=== PATIENT | female | born 1970 | race Caucasian/White ===

== ENCOUNTER 2017-12-30 19:07 | Emergency (ER) | payer MEDICAID ==
[~2017-12-30] VITALS: Ht 162.6 cm; Wt 101.5 kg
[~2017-12-30 19:07] MED LIST: ALB0.5UD IH; ALBU6.7H INH; BUDE10.2 INH; DOXY-224 PO; EPIN0.3P3 INJ; GUAI120015 PO; HYDR-569 PO; IPRA3AMP IH; MONT10TA21 PO; OMEP-84 PO; ONDA8TAB9 PO
[2017-12-30 19:21] VITALS: BP 131/73
[2017-12-30] MEDS ORDERED: PRED50TA PO (21:39)
[2017-12-30] MEDS ORDERED: LEVO750T21 PO (21:39)
== END 2017-12-30 21:42 | disposition home or self-care (01) ==
LOC: ER 19:07
DX: J44.1 Chronic obstructive pulmonary disease with (acute) exacerbation (principal); G89.29 Other chronic pain; Z98.51 Tubal ligation status; Z88.5 Allergy status to narcotic agent; Z88.0 Allergy status to penicillin; Z88.2 Allergy status to sulfonamides; Z88.8 Allergy status to other drugs, medicaments and biological substances; Z91.040 Latex allergy status; Z79.899 Other long term (current) drug therapy
CPT/HCPCS: 71046; 99284

== ENCOUNTER 2018-02-03 17:06 | Emergency (ER) | payer MEDICAID ==
[~2018-02-03] VITALS: Ht 170.2 cm; Wt 95.5 kg
[~2018-02-03 17:06] MED LIST changes: +PRED50TA PO
[2018-02-03 17:16] VITALS: BP 127/92
[2018-02-03 18:25] LABS: URINE AMPHETAMINE SCREEN NEGATIVE (Neg); URINE BARBITUATE SCREEN NEGATIVE (Neg); URINE BENZODIAZEPINES SCREEN NEGATIVE (Neg); URINE CANNABINOID SCREEN NEGATIVE (Neg); URINE COCAINE SCREEN NEGATIVE (Neg); URINE METHADONE SCREEN NEGATIVE (Neg); URINE OPIATE SCREEN NEGATIVE (Neg); URINE PHENCYCLIDINE SCREEN NEGATIVE (Neg)
== END 2018-02-03 18:08 ==
LOC: ER 17:07
DX: Z02.89 Encounter for other administrative examinations (principal); F10.129 Alcohol abuse with intoxication, unspecified; J44.9 Chronic obstructive pulmonary disease, unspecified; G89.29 Other chronic pain; Z90.710 Acquired absence of both cervix and uterus; Z98.51 Tubal ligation status; Z98.890 Other specified postprocedural states; Z88.1 Allergy status to other antibiotic agents; Z88.3 Allergy status to other anti-infective agents; Z88.5 Allergy status to narcotic agent; Z91.040 Latex allergy status; Z88.0 Allergy status to penicillin; Z88.8 Allergy status to other drugs, medicaments and biological substances; Y90.9 Presence of alcohol in blood, level not specified
CPT/HCPCS: 80305; 99283

== ENCOUNTER 2018-02-13 14:58 | Emergency (ER) | payer MEDICAID ==
[~2018-02-13] VITALS: Ht 167.6 cm; Wt 99.3 kg
[2018-02-13 15:07] VITALS: BP 129/77
== END 2018-02-13 16:51 | disposition home or self-care (01) ==
LOC: ER 14:59
DX: J02.9 Acute pharyngitis, unspecified (principal); J44.9 Chronic obstructive pulmonary disease, unspecified; G89.29 Other chronic pain; F41.0 Panic disorder [episodic paroxysmal anxiety]; Z90.710 Acquired absence of both cervix and uterus; Z98.51 Tubal ligation status; Z88.0 Allergy status to penicillin; Z88.1 Allergy status to other antibiotic agents; Z88.2 Allergy status to sulfonamides; Z88.8 Allergy status to other drugs, medicaments and biological substances; Z91.040 Latex allergy status; Z91.012 Allergy to eggs; Z91.041 Radiographic dye allergy status; Z91.030 Bee allergy status
CPT/HCPCS: 87081; 87880; 99284

== ENCOUNTER 2018-02-18 17:52 | Emergency (ER) | payer MEDICAID ==
[~2018-02-18] VITALS: Ht 162.6 cm; Wt 97.7 kg
[2018-02-18 18:07] VITALS: BP 132/82
[2018-02-18] MEDS ORDERED: NYST1000 PO (21:09)
== END 2018-02-18 21:24 | disposition home or self-care (01) ==
LOC: ER 17:53
DX: B37.9 Candidiasis, unspecified (principal); J02.9 Acute pharyngitis, unspecified; J44.9 Chronic obstructive pulmonary disease, unspecified; G89.29 Other chronic pain; Z98.51 Tubal ligation status; Z90.710 Acquired absence of both cervix and uterus; Z98.890 Other specified postprocedural states; Z88.1 Allergy status to other antibiotic agents; Z88.5 Allergy status to narcotic agent; Z88.2 Allergy status to sulfonamides; Z91.040 Latex allergy status; Z79.899 Other long term (current) drug therapy
CPT/HCPCS: 99283

== ENCOUNTER 2018-03-20 14:05 | Emergency (ER) | payer MEDICAID ==
[~2018-03-20] VITALS: Ht 584.7 cm; Wt 90.9 kg
[2018-03-20 14:41] LABS: BASOPHILS % (AUTO) 0.3 % (0-1); EOSINOPHILS # (AUTO) 0.2 X10'3 (0-0.9); EOSINOPHILS % (AUTO) 2.5 % (0-6); HEMATOCRIT 42.6 % (35.0-45.0); HEMOGLOBIN 14.6 g/dl (12.0-16.0); LYMPHOCYTES # (AUTO) 2.2 X10'3 (1.1-4.8); LYMPHOCYTES % (AUTO) 24.3 % (21-51); MEAN CORPUSCULAR HGB CONC 34.2 % (33.0-36.5); MEAN CORPUSCULAR VOLUME 90.6 FL (78-98); MEAN PLATELET VOLUME 8.3 FL (7.4-10.4); MONOCYTES # (AUTO) 0.5 X10'3 (0-0.9); MONOCYTES % (AUTO) 5.8 % (2-12); NEUTROPHILS % (AUTO) 67.1 % (42-75); PLATELET COUNT 213 X10'3 (140-440); RED CELL DISTRIBUTION WIDTH 14.6 % (11.5-14.5); WHITE BLOOD COUNT 8.9 X10'3 (4.5-11.0)
[2018-03-20 14:51] LABS: PARTIAL THROMBOPLASTIN TIME 26 SECONDS (22-32)
[2018-03-20 14:57] LABS: ALANINE AMINOTRANSFERASE 27 U/L (12-78); ALBUMIN 3.5 G/DL (3.4-5.0); ALBUMIN/GLOBULIN RATIO 0.9 (1.1-1.5); ALKALINE PHOSPHATASE 98 IU/L (46-116); ANION GAP 13 (8-16); ASPARTATE AMINO TRANSFERASE 15 U/L (10-37); BILIRUBIN,TOTAL 0.4 MG/DL (0.1-1.0); BLOOD UREA NITROGEN 18 MG/DL (7-18); CALCIUM 8.8 MG/DL (8.5-10.1); CHLORIDE 103 MMOL/L (99-107); GLUCOSE 115 MG/DL (70-104); POTASSIUM 3.5 MMOL/L (3.5-5.1); SODIUM 137 MMOL/L (135-145); TOTAL CARBON DIOXIDE 21.4 MMOL/L (24-32); TOTAL PROTEIN 7.5 G/DL (6.4-8.2); eGFR 49 ML/MIN
[2018-03-20 16:41] VITALS: BP 126/57
== END 2018-03-20 16:42 | disposition home or self-care (01) ==
LOC: ER 14:05
DX: F41.0 Panic disorder [episodic paroxysmal anxiety] (principal); R07.89 Other chest pain; J44.9 Chronic obstructive pulmonary disease, unspecified; G89.29 Other chronic pain; F17.200 Nicotine dependence, unspecified, uncomplicated; Z86.14 Personal history of Methicillin resistant Staphylococcus aureus infection; Z90.710 Acquired absence of both cervix and uterus; Z98.890 Other specified postprocedural states; Z88.1 Allergy status to other antibiotic agents; Z88.0 Allergy status to penicillin; Z88.5 Allergy status to narcotic agent; Z88.8 Allergy status to other drugs, medicaments and biological substances; Z91.030 Bee allergy status; Z91.040 Latex allergy status; Z79.899 Other long term (current) drug therapy
CPT/HCPCS: 36415; 71045; 80053; 84484; 85025; 85610; 85730; 93005; 99285

== ENCOUNTER 2018-04-02 06:41 | Emergency (ER) | payer MEDICAID ==
[~2018-04-02] VITALS: Ht 167.6 cm; Wt 97.0 kg
[2018-04-02] MEDS ORDERED: methylPREDNISolone sod succ 125mg/2ml vial IM ONE (07:00)
[2018-04-02] MEDS ORDERED: ipratropium/albuterol 3ml nebule NEB ONE (07:00)
[2018-04-02 07:20] VITALS: BP 119/69
[2018-04-02] MEDS ORDERED: PRED20TA PO ×2 (07:35→07:38)
[2018-04-02] MEDS ORDERED: AZIT-63 PO (07:35)
[2018-04-02] MEDS ORDERED: LEVO750T21 PO (07:38)
== END 2018-04-02 07:40 | disposition home or self-care (01) ==
LOC: ER 06:41
DX: J45.901 Unspecified asthma with (acute) exacerbation (principal); F17.200 Nicotine dependence, unspecified, uncomplicated; Z90.710 Acquired absence of both cervix and uterus; J44.9 Chronic obstructive pulmonary disease, unspecified; G89.29 Other chronic pain; Z86.14 Personal history of Methicillin resistant Staphylococcus aureus infection; Z88.1 Allergy status to other antibiotic agents; Z88.5 Allergy status to narcotic agent; Z91.040 Latex allergy status; Z88.2 Allergy status to sulfonamides; Z88.8 Allergy status to other drugs, medicaments and biological substances; Z91.030 Bee allergy status; Z79.899 Other long term (current) drug therapy
CPT/HCPCS: 93005; 94640; 94760; 96372; 99283; J2930

== ENCOUNTER 2018-06-09 09:34 | Emergency (ER) | payer MEDICAID ==
[~2018-06-09] VITALS: Ht 167.6 cm; Wt 93.2 kg
[~2018-06-09 09:34] MED LIST changes: +HYDR-4383 PO; -HYDR-569 PO; -IPRA3AMP IH; +IPRA3AMP31 IH
[2018-06-09 09:47] VITALS: BP 124/76
[2018-06-09] MEDS ORDERED: ketorolac tromethamine 15mg/ml inj. IM ONE (10:10)
[2018-06-09] MEDS ORDERED: gabapentin 300mg capsule PO ONE (10:10)
[2018-06-09] MEDS ORDERED: orphenadrine citrate 60mg/2ml inj. IM ONE (10:10)
== END 2018-06-09 10:48 | disposition home or self-care (01) ==
LOC: ER 09:35
DX: M54.6 Pain in thoracic spine (principal); J44.9 Chronic obstructive pulmonary disease, unspecified; G89.29 Other chronic pain; Z90.710 Acquired absence of both cervix and uterus; Z88.1 Allergy status to other antibiotic agents; Z88.5 Allergy status to narcotic agent; Z88.2 Allergy status to sulfonamides; Z91.040 Latex allergy status; Z91.012 Allergy to eggs; Z91.030 Bee allergy status; Z91.018 Allergy to other foods; Z88.8 Allergy status to other drugs, medicaments and biological substances; Z79.899 Other long term (current) drug therapy
CPT/HCPCS: 96372; 99284; J1885; J2360

== ENCOUNTER 2018-08-06 16:06 | Emergency (ER) | payer MEDICAID ==
[~2018-08-06] VITALS: Ht 167.6 cm; Wt 90.9 kg
[~2018-08-06 16:06] MED LIST changes: +LEVO500T2 PO; +PRED20TA PO
[2018-08-06] MEDS ORDERED: metoclopramide 5 mg/ml inj IV ONE (17:00)
[2018-08-06] MEDS ORDERED: normal saline 1000ML IV soln IVB ONE (17:00)
[2018-08-06] MEDS ORDERED: ketorolac trometh. 30mg/ml inj. IV ONE (17:00)
[2018-08-06] MEDS ORDERED: diphenhydrAMINE 50 mg/ml inj IV ONE (17:00)
[2018-08-06] MEDS ORDERED: ketorolac trometh inj. 60 MG/2 ML VIAL IM ONE (18:10)
[2018-08-06] MEDS ORDERED: diphenhydrAMINE 50 mg/ml inj IM ONE (18:10)
[2018-08-06] MEDS ORDERED: metoclopramide 5 mg/ml inj IM ONE (18:10)
[2018-08-06] MEDS ORDERED: BUTA-281 PO (19:11)
[2018-08-06 19:30] VITALS: BP 108/61
== END 2018-08-06 19:32 | disposition home or self-care (01) ==
LOC: ER 16:06
DX: R51 Headache (principal); R12 Heartburn; R11.10 Vomiting, unspecified; J44.9 Chronic obstructive pulmonary disease, unspecified; G89.29 Other chronic pain; F17.200 Nicotine dependence, unspecified, uncomplicated; Z86.14 Personal history of Methicillin resistant Staphylococcus aureus infection; Z90.710 Acquired absence of both cervix and uterus; Z98.51 Tubal ligation status; Z98.890 Other specified postprocedural states; Z88.1 Allergy status to other antibiotic agents; Z88.5 Allergy status to narcotic agent; Z88.2 Allergy status to sulfonamides; Z91.040 Latex allergy status; Z91.030 Bee allergy status; Z88.0 Allergy status to penicillin; Z88.8 Allergy status to other drugs, medicaments and biological substances; Z79.899 Other long term (current) drug therapy
CPT/HCPCS: 70450; 96372; 99284; J1200; J1885; J2765

== ENCOUNTER 2018-08-21 15:39 | Emergency (ER) | payer MEDICAID ==
[~2018-08-21] VITALS: Ht 167.6 cm; Wt 90.9 kg
[~2018-08-21 15:39] MED LIST changes: +BUTA-281 PO; -LEVO500T2 PO; -PRED20TA PO
[2018-08-21 17:03] LABS: BASOPHILS % (AUTO) 0.3 % (0-1); EOSINOPHILS # (AUTO) 0.2 X10'3 (0-0.9); EOSINOPHILS % (AUTO) 1.5 % (0-6); HEMATOCRIT 44.3 % (35.0-45.0); HEMOGLOBIN 14.8 g/dl (12.0-16.0); LYMPHOCYTES # (AUTO) 2.1 X10'3 (1.1-4.8); LYMPHOCYTES % (AUTO) 19.1 % (21-51); MEAN CORPUSCULAR HEMOGLOBIN 31.4 PG (27.0-31.0); MEAN CORPUSCULAR HGB CONC 33.4 % (33.0-36.5); MEAN CORPUSCULAR VOLUME 93.9 FL (78-98); MEAN PLATELET VOLUME 8.6 FL (7.4-10.4); MONOCYTES # (AUTO) 0.5 X10'3 (0-0.9); MONOCYTES % (AUTO) 4.4 % (2-12); NEUTROPHILS # (AUTO) 8.3 X10'3 (1.8-7.7); NEUTROPHILS % (AUTO) 74.7 % (42-75); PLATELET COUNT 255 X10'3 (140-440); RED BLOOD COUNT 4.71 X10'6 (4.20-5.60); WHITE BLOOD COUNT 11.1 X10'3 (4.5-11.0)
[2018-08-21 17:19] LABS: ALANINE AMINOTRANSFERASE 25 U/L (12-78); ALBUMIN 3.4 G/DL (3.4-5.0); ALBUMIN/GLOBULIN RATIO 0.9 (1.1-1.5); ALKALINE PHOSPHATASE 96 IU/L (46-116); ANION GAP 8 (8-16); ASPARTATE AMINO TRANSFERASE 13 U/L (10-37); BILIRUBIN,TOTAL 0.3 MG/DL (0.1-1.0); BLOOD UREA NITROGEN 19 MG/DL (7-18); CALCIUM 9.1 MG/DL (8.5-10.1); CHLORIDE 105 MMOL/L (99-107); CREATININE 1.27 MG/DL (0.40-0.90); GLUCOSE 101 MG/DL (70-104); POTASSIUM 3.6 MMOL/L (3.5-5.1); SODIUM 141 MMOL/L (135-145); TOTAL CARBON DIOXIDE 28.5 MMOL/L (24-32); TOTAL PROTEIN 7.2 G/DL (6.4-8.2); eGFR 45 ML/MIN
[2018-08-21 17:24] LABS: PARTIAL THROMBOPLASTIN TIME 28 SECONDS (22-32); PROTHROMBIN TIME 9.8 SECONDS (9.0-12.0)
[2018-08-21 20:08] VITALS: BP 132/81
== END 2018-08-21 20:12 | disposition home or self-care (01) ==
LOC: ER 15:39
DX: J06.9 Acute upper respiratory infection, unspecified (principal); M94.0 Chondrocostal junction syndrome [Tietze]; J44.9 Chronic obstructive pulmonary disease, unspecified; G89.29 Other chronic pain; F17.200 Nicotine dependence, unspecified, uncomplicated; Z98.890 Other specified postprocedural states; Z98.51 Tubal ligation status; Z88.1 Allergy status to other antibiotic agents; Z88.3 Allergy status to other anti-infective agents; Z91.040 Latex allergy status; Z88.0 Allergy status to penicillin; Z88.2 Allergy status to sulfonamides; Z88.8 Allergy status to other drugs, medicaments and biological substances; Z79.899 Other long term (current) drug therapy
CPT/HCPCS: 36415; 71045; 80053; 84484; 85025; 85610; 85730; 93005; 99284

== ENCOUNTER 2018-08-28 06:16 | Emergency (ER) | payer MEDICAID ==
[~2018-08-28] VITALS: Ht 167.6 cm; Wt 94.8 kg
[2018-08-28] MEDS ORDERED: albuterol 2.5 MG/3 ML nebule NEB ONE (06:55)
[2018-08-28] MEDS ORDERED: ipratropium/albuterol 3ml nebule NEB ONE (06:55)
[2018-08-28] MEDS ORDERED: predniSONE 20 mg tablet PO ONE (06:55)
[2018-08-28] MEDS ORDERED: PRED20TA PO (08:12)
[2018-08-28] MEDS ORDERED: ALBU18HF2 INH (08:12)
[2018-08-28] MEDS ORDERED: LEVO750T21 PO (08:12)
[2018-08-28 08:20] VITALS: BP 110/60
== END 2018-08-28 08:46 | disposition home or self-care (01) ==
LOC: ER 06:17
DX: J44.1 Chronic obstructive pulmonary disease with (acute) exacerbation (principal); J20.9 Acute bronchitis, unspecified; G89.29 Other chronic pain; F17.200 Nicotine dependence, unspecified, uncomplicated; Z90.710 Acquired absence of both cervix and uterus; Z98.51 Tubal ligation status; Z87.01 Personal history of pneumonia (recurrent); Z88.1 Allergy status to other antibiotic agents; Z88.3 Allergy status to other anti-infective agents; Z91.013 Allergy to seafood; Z88.5 Allergy status to narcotic agent; Z91.040 Latex allergy status; Z88.0 Allergy status to penicillin; Z88.2 Allergy status to sulfonamides; Z79.899 Other long term (current) drug therapy
CPT/HCPCS: 71045; 94640; 94760; 99284; J7512

== ENCOUNTER 2018-09-24 14:14 | Emergency (ER) | payer MEDICAID ==
[~2018-09-24] VITALS: Ht 167.6 cm; Wt 94.0 kg
[~2018-09-24 14:14] MED LIST changes: +ALBU18HF2 INH
[2018-09-24 14:16] VITALS: BP 115/68
[2018-09-24 14:46] LABS: BASOPHILS # (AUTO) 0.1 X10'3 (0-0.2); BASOPHILS % (AUTO) 0.7 % (0-1); EOSINOPHILS # (AUTO) 0.8 X10'3 (0-0.9); HEMATOCRIT 43.4 % (35.0-45.0); HEMOGLOBIN 14.8 g/dl (12.0-16.0); LYMPHOCYTES # (AUTO) 2.4 X10'3 (1.1-4.8); LYMPHOCYTES % (AUTO) 21.5 % (21-51); MEAN CORPUSCULAR HEMOGLOBIN 31.9 PG (27.0-31.0); MEAN CORPUSCULAR HGB CONC 34.2 % (33.0-36.5); MEAN CORPUSCULAR VOLUME 93.3 FL (78-98); MEAN PLATELET VOLUME 8.6 FL (7.4-10.4); MONOCYTES # (AUTO) 0.6 X10'3 (0-0.9); MONOCYTES % (AUTO) 5.8 % (2-12); NEUTROPHILS # (AUTO) 7.1 X10'3 (1.8-7.7); PLATELET COUNT 232 X10'3 (140-440); RED BLOOD COUNT 4.65 X10'6 (4.20-5.60); RED CELL DISTRIBUTION WIDTH 13.9 % (11.5-14.5)
[2018-09-24 15:02] LABS: ALANINE AMINOTRANSFERASE 24 U/L (12-78); ALBUMIN 3.5 G/DL (3.4-5.0); ALBUMIN/GLOBULIN RATIO 0.9 (1.1-1.5); ALKALINE PHOSPHATASE 106 IU/L (46-116); ANION GAP 13 (8-16); ASPARTATE AMINO TRANSFERASE 13 U/L (10-37); BILIRUBIN,TOTAL 0.2 MG/DL (0.1-1.0); BLOOD UREA NITROGEN 18 MG/DL (7-18); BUN/CREATININE RATIO 12.6 (6.6-38.0); CALCIUM 8.9 MG/DL (8.5-10.1); CHLORIDE 105 MMOL/L (99-107); CREATININE 1.43 MG/DL (0.40-0.90); GLUCOSE 132 MG/DL (70-104); POTASSIUM 3.7 MMOL/L (3.5-5.1); SODIUM 140 MMOL/L (135-145); TOTAL CARBON DIOXIDE 21.6 MMOL/L (24-32); TOTAL PROTEIN 7.6 G/DL (6.4-8.2); eGFR 40 ML/MIN
[2018-09-24 15:04] LABS: PARTIAL THROMBOPLASTIN TIME 28 SECONDS (22-32); PROTHROMBIN TIME 9.8 SECONDS (9.0-12.0)
[2018-09-24] MEDS ORDERED: BENZ-16 PO (15:39)
--- NOTE | 2018-09-24 15:47 | NUR ---
Pt sat in lobby while tests were done. Pt was brought back to room to see MD and was discharged moments later. Pt assessed by Provider. Pt discharged prior to sound designer. See MSE by Dr Romeo.
== END 2018-09-24 15:49 | disposition home or self-care (01) ==
LOC: ER 14:14
DX: J06.9 Acute upper respiratory infection, unspecified (principal); J44.9 Chronic obstructive pulmonary disease, unspecified; G89.29 Other chronic pain; Z87.891 Personal history of nicotine dependence; Z90.710 Acquired absence of both cervix and uterus; Z98.51 Tubal ligation status; Z98.890 Other specified postprocedural states; Z88.1 Allergy status to other antibiotic agents; Z88.3 Allergy status to other anti-infective agents; Z91.040 Latex allergy status; Z88.0 Allergy status to penicillin; Z79.899 Other long term (current) drug therapy
CPT/HCPCS: 36415; 71045; 80053; 84484; 85025; 85610; 85730; 93005; 99284

== ENCOUNTER 2018-11-14 15:58 | Emergency (ER) | payer MEDICAID ==
[~2018-11-14] VITALS: Ht 165.1 cm; Wt 99.0 kg
[2018-11-14 16:30] VITALS: BP 138/63
[2018-11-14] MEDS ORDERED: PRED10TA23 PO (16:38)
[2018-11-14] MEDS ORDERED: DIPH25CA83 PO (16:38)
[2018-11-14] MEDS ORDERED: FAMO-128 PO (16:38)
== END 2018-11-14 16:58 | disposition home or self-care (01) ==
LOC: ER 15:58
DX: L23.9 Allergic contact dermatitis, unspecified cause (principal); R30.0 Dysuria; J43.9 Emphysema, unspecified; G89.29 Other chronic pain; Z90.710 Acquired absence of both cervix and uterus; Z98.51 Tubal ligation status; Z88.1 Allergy status to other antibiotic agents; Z88.5 Allergy status to narcotic agent; Z91.040 Latex allergy status; Z88.0 Allergy status to penicillin; Z88.2 Allergy status to sulfonamides; Z91.030 Bee allergy status; Z91.02 Food additives allergy status; Z88.8 Allergy status to other drugs, medicaments and biological substances; Z79.899 Other long term (current) drug therapy
CPT/HCPCS: 99283

== ENCOUNTER 2018-11-19 07:43 | Emergency (ER) | payer MEDICAID ==
[~2018-11-19] VITALS: Ht 165.1 cm; Wt 99.1 kg
[~2018-11-19 07:43] MED LIST changes: +DIPH25CA83 PO; +FAMO-128 PO; +PRED10TA23 PO
[2018-11-19 07:45] VITALS: BP 126/57
--- NOTE | 2018-11-19 08:47 | NUR ---
provider in the room doing exam. pt. has large itchy red areas all over her abdomen on the left side. pt. has rash in her nate area also... poison oak.
[2018-11-19] MEDS ORDERED: triamcinolone acetonide 40mg/ml inj IM ONE (09:05)
== END 2018-11-19 09:42 | disposition home or self-care (01) ==
LOC: ER 07:44
DX: L25.8 Unspecified contact dermatitis due to other agents (principal); J44.9 Chronic obstructive pulmonary disease, unspecified; G89.29 Other chronic pain; Z86.14 Personal history of Methicillin resistant Staphylococcus aureus infection; Z90.710 Acquired absence of both cervix and uterus; Z98.51 Tubal ligation status; Z87.891 Personal history of nicotine dependence; Z79.899 Other long term (current) drug therapy; Z88.1 Allergy status to other antibiotic agents; Z88.3 Allergy status to other anti-infective agents; Z88.6 Allergy status to analgesic agent; Z88.0 Allergy status to penicillin; Z91.040 Latex allergy status; Z88.2 Allergy status to sulfonamides
CPT/HCPCS: 96372; 99283; J3301

== ENCOUNTER 2018-12-26 14:43 | Emergency (ER) | payer MEDICAID ==
[~2018-12-26] VITALS: Ht 167.6 cm; Wt 85.0 kg
[~2018-12-26 14:43] MED LIST changes: -PRED10TA23 PO
[2018-12-26 15:07] VITALS: BP 122/53
[2018-12-26] MEDS ORDERED: albuterol 2.5 MG/3 ML nebule NEB ONE (15:15)
[2018-12-26] MEDS ORDERED: PRED20TA PO (16:08)
== END 2018-12-26 16:18 | disposition home or self-care (01) ==
LOC: ER 14:45
DX: J45.901 Unspecified asthma with (acute) exacerbation (principal); G89.29 Other chronic pain; Z88.1 Allergy status to other antibiotic agents; Z88.2 Allergy status to sulfonamides; Z91.040 Latex allergy status; Z79.899 Other long term (current) drug therapy; Z86.14 Personal history of Methicillin resistant Staphylococcus aureus infection; Z90.710 Acquired absence of both cervix and uterus; Z98.51 Tubal ligation status; Z98.890 Other specified postprocedural states
CPT/HCPCS: 94640; 94760; 99283

== ENCOUNTER → 2018-12-30 | Emergency (ER) | payer MEDICAID ==
[~2018-12-30] VITALS: Ht 167.6 cm; Wt 85.0 kg
[~2018-12-30] MED LIST changes: +PRED20TA PO; +aspirin 81mg tab.chew PO ONE; +normal saline 1000ml 1,000 ML IV ONE
[2018-12-30 10:29] LABS: BASOPHILS % (AUTO) 0.2 % (0-1); EOSINOPHILS % (AUTO) 0.1 % (0-6); HEMATOCRIT 45.6 % (35.0-45.0); LYMPHOCYTES % (AUTO) 7.1 % (21-51); MEAN CORPUSCULAR HEMOGLOBIN 30.8 PG (27.0-31.0); MEAN CORPUSCULAR VOLUME 93.5 FL (78-98); MEAN PLATELET VOLUME 8.6 FL (7.4-10.4); MONOCYTES # (AUTO) 0.5 X10'3 (0-0.9); MONOCYTES % (AUTO) 3.4 % (2-12); NEUTROPHILS # (AUTO) 12.9 X10'3 (1.8-7.7); NEUTROPHILS % (AUTO) 89.2 % (42-75); PLATELET COUNT 255 X10'3 (140-440); RED BLOOD COUNT 4.87 X10'6 (4.20-5.60); RED CELL DISTRIBUTION WIDTH 13.4 % (11.5-14.5); WHITE BLOOD COUNT 14.5 X10'3 (4.5-11.0)
[2018-12-30 10:36] VITALS: BP 128/73
[2018-12-30 10:43] LABS: ALANINE AMINOTRANSFERASE 30 U/L (12-78); ALBUMIN 3.4 G/DL (3.4-5.0); ALBUMIN/GLOBULIN RATIO 0.9 (1.1-1.5); ALKALINE PHOSPHATASE 86 IU/L (46-116); ANION GAP 13 (8-16); ASPARTATE AMINO TRANSFERASE 11 U/L (10-37); BILIRUBIN,TOTAL 0.2 MG/DL (0.1-1.0); BLOOD UREA NITROGEN 26 MG/DL (7-18); CALCIUM 9.7 MG/DL (8.5-10.1); CHLORIDE 106 MMOL/L (99-107); GLUCOSE 109 MG/DL (70-104); POTASSIUM 3.9 MMOL/L (3.5-5.1); SODIUM 141 MMOL/L (135-145); TOTAL CARBON DIOXIDE 22.5 MMOL/L (24-32); TOTAL PROTEIN 7.1 G/DL (6.4-8.2); eGFR 44 ML/MIN
== END | disposition home or self-care (01) ==
LOC: ER 09:24
DX: R07.89 Other chest pain (principal); J06.9 Acute upper respiratory infection, unspecified; J44.9 Chronic obstructive pulmonary disease, unspecified; G89.29 Other chronic pain; Z86.14 Personal history of Methicillin resistant Staphylococcus aureus infection; Z90.710 Acquired absence of both cervix and uterus; Z98.51 Tubal ligation status; Z98.890 Other specified postprocedural states; Z88.8 Allergy status to other drugs, medicaments and biological substances; Z88.1 Allergy status to other antibiotic agents; Z88.5 Allergy status to narcotic agent; Z88.2 Allergy status to sulfonamides; Z88.0 Allergy status to penicillin; Z91.040 Latex allergy status; Z91.030 Bee allergy status; Z91.018 Allergy to other foods; Z79.899 Other long term (current) drug therapy
CPT/HCPCS: 36415; 71045; 71250; 80053; 83735; 83880; 84484; 85025; 93005; 99284; J7030

== ENCOUNTER 2019-04-04 16:24 | Emergency (ER) | payer MEDICAID ==
[~2019-04-04] VITALS: Ht 167.6 cm; Wt 88.6 kg
[~2019-04-04 16:24] MED LIST changes: -ALBU6.7H INH; +ALBU6.7H9 INH; -PRED20TA PO; -aspirin 81mg tab.chew PO ONE; -normal saline 1000ml 1,000 ML IV ONE
[2019-04-04] MEDS ORDERED: albuterol 2.5 MG/3 ML nebule NEB ONE (17:15)
[2019-04-04 17:34] LABS: BASOPHILS # (AUTO) 0.1 X10'3 (0-0.2); BASOPHILS % (AUTO) 0.7 % (0-1); EOSINOPHILS # (AUTO) 0.2 X10'3 (0-0.9); EOSINOPHILS % (AUTO) 1.9 % (0-6); HEMATOCRIT 43.1 % (35.0-45.0); HEMOGLOBIN 14.5 g/dl (12.0-16.0); LYMPHOCYTES # (AUTO) 2.4 X10'3 (1.1-4.8); LYMPHOCYTES % (AUTO) 24.7 % (21-51); MEAN CORPUSCULAR HEMOGLOBIN 31.8 PG (27.0-31.0); MEAN CORPUSCULAR HGB CONC 33.7 g/dL (33.0-36.5); MEAN CORPUSCULAR VOLUME 94.3 FL (78-98); MEAN PLATELET VOLUME 8.1 FL (7.4-10.4); MONOCYTES # (AUTO) 0.7 X10'3 (0-0.9); MONOCYTES % (AUTO) 7.3 % (2-12); NEUTROPHILS # (AUTO) 6.5 X10'3 (1.8-7.7); NEUTROPHILS % (AUTO) 65.4 % (42-75); PLATELET COUNT 245 X10'3 (140-440); RED BLOOD COUNT 4.57 X10'6 (4.20-5.60); RED CELL DISTRIBUTION WIDTH 14.1 % (11.5-14.5); WHITE BLOOD COUNT 9.9 X10'3 (4.5-11.0)
[2019-04-04 17:46] LABS: ALANINE AMINOTRANSFERASE 25 U/L (12-78); ALBUMIN 3.4 G/DL (3.4-5.0); ALBUMIN/GLOBULIN RATIO 0.9 (1.1-1.5); ALKALINE PHOSPHATASE 90 IU/L (46-116); ANION GAP 9 (8-16); ASPARTATE AMINO TRANSFERASE 14 U/L (10-37); BILIRUBIN,TOTAL 0.2 MG/DL (0.1-1.0); BLOOD UREA NITROGEN 18 MG/DL (7-18); BUN/CREATININE RATIO 18.4 (6.6-38.0); CALCIUM 8.7 MG/DL (8.5-10.1); CHLORIDE 107 MMOL/L (99-107); CREATININE 0.98 MG/DL (0.40-0.90); GLUCOSE 100 MG/DL (70-104); POTASSIUM 3.8 MMOL/L (3.5-5.1); SODIUM 140 MMOL/L (135-145); TOTAL CARBON DIOXIDE 23.6 MMOL/L (24-32); TOTAL PROTEIN 7.1 G/DL (6.4-8.2); eGFR 61 ML/MIN
[2019-04-04 18:32] VITALS: BP 129/74
--- NOTE | 2019-04-04 18:34 | NUR ---
DR POLANCO TALKING WITH PT ABOUT DISCHARGE. PT OFFERED NAUSEA MEDS BUT REPORTS NO NEED FOR THISL. pT IS AGREEABLE TO DC. CURRENT VSS.
== END 2019-04-04 18:40 | disposition home or self-care (01) ==
LOC: ER 16:24
DX: R07.89 Other chest pain (principal); J44.9 Chronic obstructive pulmonary disease, unspecified; G89.29 Other chronic pain; Z87.891 Personal history of nicotine dependence; Z90.710 Acquired absence of both cervix and uterus; Z98.51 Tubal ligation status; Z98.890 Other specified postprocedural states; Z88.1 Allergy status to other antibiotic agents; Z88.3 Allergy status to other anti-infective agents; Z88.0 Allergy status to penicillin; Z88.2 Allergy status to sulfonamides; Z91.040 Latex allergy status; Z88.8 Allergy status to other drugs, medicaments and biological substances
CPT/HCPCS: 36415; 71046; 80053; 84484; 85025; 93005; 94640; 94760; 99284

== ENCOUNTER 2019-05-12 06:17 | Emergency (ER) | payer MEDICAID ==
[~2019-05-12] VITALS: Ht 167.6 cm; Wt 91.4 kg
[2019-05-12 06:28] VITALS: BP 139/51
[2019-05-12 07:05] LABS: BASOPHILS # (AUTO) 0.1 X10'3 (0-0.2); BASOPHILS % (AUTO) 1.1 % (0-1); EOSINOPHILS # (AUTO) 0.2 X10'3 (0-0.9); EOSINOPHILS % (AUTO) 2.7 % (0-6); HEMATOCRIT 43.6 % (35.0-45.0); HEMOGLOBIN 14.7 g/dl (12.0-16.0); LYMPHOCYTES # (AUTO) 1.7 X10'3 (1.1-4.8); LYMPHOCYTES % (AUTO) 23.7 % (21-51); MEAN CORPUSCULAR HEMOGLOBIN 31.8 PG (27.0-31.0); MEAN CORPUSCULAR HGB CONC 33.6 g/dL (33.0-36.5); MEAN CORPUSCULAR VOLUME 94.4 FL (78-98); MEAN PLATELET VOLUME 8.3 FL (7.4-10.4); MONOCYTES # (AUTO) 0.6 X10'3 (0-0.9); MONOCYTES % (AUTO) 7.9 % (2-12); NEUTROPHILS # (AUTO) 4.6 X10'3 (1.8-7.7); NEUTROPHILS % (AUTO) 64.6 % (42-75); PLATELET COUNT 238 X10'3 (140-440); RED BLOOD COUNT 4.62 X10'6 (4.20-5.60); WHITE BLOOD COUNT 7.1 X10'3 (4.5-11.0)
[2019-05-12 07:31] LABS: PARTIAL THROMBOPLASTIN TIME 27 SECONDS (22-32)
[2019-05-12 07:32] LABS: ALANINE AMINOTRANSFERASE 20 U/L (12-78); ALBUMIN/GLOBULIN RATIO 0.8 (1.1-1.5); ALKALINE PHOSPHATASE 82 IU/L (46-116); ANION GAP 9 (8-16); ASPARTATE AMINO TRANSFERASE 13 U/L (10-37); BILIRUBIN,TOTAL 0.3 MG/DL (0.1-1.0); BLOOD UREA NITROGEN 15 MG/DL (7-18); BUN/CREATININE RATIO 15.8 (6.6-38.0); CALCIUM 8.5 MG/DL (8.5-10.1); CHLORIDE 106 MMOL/L (99-107); CREATININE 0.95 MG/DL (0.40-0.90); GLUCOSE 93 MG/DL (70-104); POTASSIUM 3.8 MMOL/L (3.5-5.1); SODIUM 144 MMOL/L (135-145); TOTAL CARBON DIOXIDE 29.4 MMOL/L (24-32); TOTAL PROTEIN 6.6 G/DL (6.4-8.2); eGFR 63 ML/MIN
== END 2019-05-12 08:04 | disposition home or self-care (01) ==
LOC: ER 06:18
DX: R07.89 Other chest pain (principal); R05 Cough; J44.9 Chronic obstructive pulmonary disease, unspecified; G89.29 Other chronic pain; F41.9 Anxiety disorder, unspecified; F17.210 Nicotine dependence, cigarettes, uncomplicated; F10.99 Alcohol use, unspecified with unspecified alcohol-induced disorder; Z86.14 Personal history of Methicillin resistant Staphylococcus aureus infection; Z90.710 Acquired absence of both cervix and uterus; Z98.51 Tubal ligation status; Z98.890 Other specified postprocedural states; Z88.1 Allergy status to other antibiotic agents; Z88.5 Allergy status to narcotic agent; Z91.040 Latex allergy status; Z88.0 Allergy status to penicillin; Z91.030 Bee allergy status; Z79.899 Other long term (current) drug therapy; Y90.9 Presence of alcohol in blood, level not specified
CPT/HCPCS: 36415; 71045; 80053; 84484; 85025; 85610; 85730; 93005; 99284

== ENCOUNTER 2019-05-30 16:43 | Emergency (ER) | payer MEDICAID ==
[~2019-05-30] VITALS: Ht 167.6 cm; Wt 91.4 kg
[2019-05-30] MEDS ORDERED: ketorolac trometh. 30mg/ml inj. IV ONE (18:30)
[2019-05-30] MEDS ORDERED: orphenadrine citrate 60mg/2ml inj. IM ONE (18:30)
[2019-05-30] MEDS: morphine 4 MG/ML inj SYRINge IV ONE ×2 (18:42→18:43)
[2019-05-30] MEDS ORDERED: IBUP-1986 PO (18:55)
[2019-05-30] MEDS ORDERED: HYDR-4353 PO (18:55)
[2019-05-30] MEDS ORDERED: ORPH100T2 PO (18:55)
[2019-05-30 19:21] VITALS: BP 130/84
== END 2019-05-30 19:27 | disposition home or self-care (01) ==
LOC: ER 16:44
DX: S16.1XXA Strain of muscle, fascia and tendon at neck level, initial encounter (principal); S46.811A Strain of other muscles, fascia and tendons at shoulder and upper arm level, right arm, initial encounter; S29.011A Strain of muscle and tendon of front wall of thorax, initial encounter; J43.9 Emphysema, unspecified; G89.29 Other chronic pain; F41.0 Panic disorder [episodic paroxysmal anxiety]; F41.9 Anxiety disorder, unspecified; F15.90 Other stimulant use, unspecified, uncomplicated; Z86.14 Personal history of Methicillin resistant Staphylococcus aureus infection; Z98.51 Tubal ligation status; Z90.710 Acquired absence of both cervix and uterus; Z87.891 Personal history of nicotine dependence; Z98.890 Other specified postprocedural states; Z88.1 Allergy status to other antibiotic agents; Z91.040 Latex allergy status; Z88.5 Allergy status to narcotic agent; Z88.2 Allergy status to sulfonamides; Z79.2 Long term (current) use of antibiotics; Z79.899 Other long term (current) drug therapy; V43.63XA Car passenger injured in collision with pick-up truck in traffic accident, initial encounter; Y93.89 Activity, other specified; Y92.488 Other paved roadways as the place of occurrence of the external cause; Y99.8 Other external cause status
CPT/HCPCS: 96372; 96374; 99283; J1885; J2270; J2360

== ENCOUNTER 2019-09-07 15:05 | Emergency (ER) | payer MEDICAID, OTHER ==
[~2019-09-07] VITALS: Ht 167.6 cm; Wt 100.0 kg
[~2019-09-07 15:05] MED LIST changes: +IBUP-1986 PO; +LIDOcaine 1% W/epiNEPHrine 1:100,000 20ml vial ONE; +ORPH100T2 PO
[2019-09-07 15:20] VITALS: BP 133/72
[2019-09-07] MEDS ORDERED: DAPS100T2 PO (16:34)
== END 2019-09-07 17:03 | disposition home or self-care (01) ==
LOC: ER 15:05
DX: L02.412 Cutaneous abscess of left axilla (principal); G89.29 Other chronic pain; F41.9 Anxiety disorder, unspecified; F15.90 Other stimulant use, unspecified, uncomplicated; J44.9 Chronic obstructive pulmonary disease, unspecified; F10.99 Alcohol use, unspecified with unspecified alcohol-induced disorder; Z90.710 Acquired absence of both cervix and uterus; Z88.1 Allergy status to other antibiotic agents; Z88.0 Allergy status to penicillin; Z88.2 Allergy status to sulfonamides; Z88.8 Allergy status to other drugs, medicaments and biological substances; Z79.2 Long term (current) use of antibiotics; Z79.899 Other long term (current) drug therapy; Z86.14 Personal history of Methicillin resistant Staphylococcus aureus infection; Z98.51 Tubal ligation status; Y90.9 Presence of alcohol in blood, level not specified
CPT/HCPCS: 10060; 99283

== ENCOUNTER 2019-09-10 12:30 | Emergency (ER) | payer OTHER ==
[~2019-09-10] VITALS: Ht 170.2 cm; Wt 100.0 kg
[~2019-09-10 12:30] MED LIST changes: +DAPS100T2 PO; -LIDOcaine 1% W/epiNEPHrine 1:100,000 20ml vial ONE
[2019-09-10 13:10] VITALS: BP 123/64
== END 2019-09-10 13:46 | disposition home or self-care (01) ==
LOC: ER 12:31
DX: Z48.00 Encounter for change or removal of nonsurgical wound dressing (principal); J44.9 Chronic obstructive pulmonary disease, unspecified; G89.29 Other chronic pain; F41.9 Anxiety disorder, unspecified; F10.99 Alcohol use, unspecified with unspecified alcohol-induced disorder; Z86.14 Personal history of Methicillin resistant Staphylococcus aureus infection; Z90.710 Acquired absence of both cervix and uterus; Z98.51 Tubal ligation status; Z98.890 Other specified postprocedural states; Z88.1 Allergy status to other antibiotic agents; Z88.5 Allergy status to narcotic agent; Z88.2 Allergy status to sulfonamides; Z91.040 Latex allergy status; Z88.6 Allergy status to analgesic agent; Z91.030 Bee allergy status; Z88.8 Allergy status to other drugs, medicaments and biological substances; Z79.899 Other long term (current) drug therapy; Y90.9 Presence of alcohol in blood, level not specified
CPT/HCPCS: 99281

== ENCOUNTER 2019-09-12 11:45 | Emergency (ER) | payer OTHER ==
[~2019-09-12] VITALS: Ht 170.2 cm; Wt 98.0 kg
[2019-09-12 12:03] VITALS: BP 110/81
== END 2019-09-12 13:06 | disposition home or self-care (01) ==
LOC: ER 11:45
DX: R22.32 Localized swelling, mass and lump, left upper limb (principal); J44.9 Chronic obstructive pulmonary disease, unspecified; G89.29 Other chronic pain; Z87.01 Personal history of pneumonia (recurrent); Z86.14 Personal history of Methicillin resistant Staphylococcus aureus infection; Z90.710 Acquired absence of both cervix and uterus; Z98.51 Tubal ligation status; Z98.890 Other specified postprocedural states; Z79.899 Other long term (current) drug therapy; Z88.1 Allergy status to other antibiotic agents; Z88.3 Allergy status to other anti-infective agents; Z88.6 Allergy status to analgesic agent; Z91.040 Latex allergy status; Z91.030 Bee allergy status
CPT/HCPCS: 99281

== ENCOUNTER 2019-09-25 18:41 | Emergency (ER) | payer OTHER ==
[~2019-09-25] VITALS: Ht 167.6 cm; Wt 99.0 kg
[2019-09-25 19:33] LABS: BASOPHILS # (AUTO) 0.1 X10'3 (0-0.2); BASOPHILS % (AUTO) 1.3 % (0-1); EOSINOPHILS # (AUTO) 0.1 X10'3 (0-0.9); EOSINOPHILS % (AUTO) 1.3 % (0-6); HEMATOCRIT 45.5 % (35.0-45.0); HEMOGLOBIN 15.5 g/dl (12.0-16.0); LYMPHOCYTES # (AUTO) 2.9 X10'3 (1.1-4.8); LYMPHOCYTES % (AUTO) 26.3 % (21-51); MEAN CORPUSCULAR HEMOGLOBIN 31.1 PG (27.0-31.0); MEAN CORPUSCULAR VOLUME 91.4 FL (78-98); MEAN PLATELET VOLUME 8.4 FL (7.4-10.4); MONOCYTES # (AUTO) 0.8 X10'3 (0-0.9); MONOCYTES % (AUTO) 7.6 % (2-12); NEUTROPHILS # (AUTO) 6.9 X10'3 (1.8-7.7); NEUTROPHILS % (AUTO) 63.5 % (42-75); PLATELET COUNT 263 X10'3 (140-440); RED BLOOD COUNT 4.98 X10'6 (4.20-5.60); RED CELL DISTRIBUTION WIDTH 13.2 % (11.5-14.5); WHITE BLOOD COUNT 10.9 X10'3 (4.5-11.0)
[2019-09-25 19:40] LABS: ALANINE AMINOTRANSFERASE 28 U/L (12-78); ALBUMIN 3.7 G/DL (3.4-5.0); ALBUMIN/GLOBULIN RATIO 0.9 (1.1-1.5); ALKALINE PHOSPHATASE 113 IU/L (46-116); ANION GAP 6 (8-16); ASPARTATE AMINO TRANSFERASE 14 U/L (10-37); BILIRUBIN,TOTAL 0.3 MG/DL (0.1-1.0); BLOOD UREA NITROGEN 19 MG/DL (7-18); BUN/CREATININE RATIO 18.4 (6.6-38.0); CALCIUM 9.4 MG/DL (8.5-10.1); CHLORIDE 105 MMOL/L (99-107); CREATININE 1.03 MG/DL (0.40-0.90); GLUCOSE 107 MG/DL (70-104); POTASSIUM 3.8 MMOL/L (3.5-5.1); SODIUM 138 MMOL/L (135-145); TOTAL CARBON DIOXIDE 27.4 MMOL/L (24-32); eGFR 57 ML/MIN
[2019-09-25] MEDS ORDERED: LEVO500T2 PO (20:24)
[2019-09-25] MEDS ORDERED: ibuprofen tablet 400 MG TABLET PO ONE (20:25)
[2019-09-25 20:36] VITALS: BP 131/79
== END 2019-09-25 20:40 | disposition home or self-care (01) ==
LOC: ER 18:41
DX: R07.89 Other chest pain (principal); L02.412 Cutaneous abscess of left axilla; J44.9 Chronic obstructive pulmonary disease, unspecified; G89.29 Other chronic pain; F41.9 Anxiety disorder, unspecified; F17.210 Nicotine dependence, cigarettes, uncomplicated; F10.99 Alcohol use, unspecified with unspecified alcohol-induced disorder; Z88.1 Allergy status to other antibiotic agents; Z88.5 Allergy status to narcotic agent; Z88.0 Allergy status to penicillin; Z88.2 Allergy status to sulfonamides; Z88.6 Allergy status to analgesic agent; Z91.040 Latex allergy status; Z91.030 Bee allergy status; Z79.899 Other long term (current) drug therapy; Z90.710 Acquired absence of both cervix and uterus; Z98.51 Tubal ligation status; Z98.890 Other specified postprocedural states; Y90.9 Presence of alcohol in blood, level not specified
CPT/HCPCS: 36415; 71045; 80053; 84484; 85025; 93005; 99284

== ENCOUNTER 2019-12-19 21:31 | Emergency (ER) | payer MEDICAID ==
[~2019-12-19] VITALS: Ht 167.6 cm; Wt 100.0 kg
[2019-12-19 22:13] LABS: BASOPHILS # (AUTO) 0.1 X10'3 (0-0.2); BASOPHILS % (AUTO) 0.8 % (0-1); EOSINOPHILS # (AUTO) 0.2 X10'3 (0-0.9); EOSINOPHILS % (AUTO) 2.2 % (0-6); HEMATOCRIT 44.3 % (35.0-45.0); HEMOGLOBIN 14.7 g/dl (12.0-16.0); LYMPHOCYTES # (AUTO) 2.3 X10'3 (1.1-4.8); LYMPHOCYTES % (AUTO) 25.4 % (21-51); MEAN CORPUSCULAR HEMOGLOBIN 31.3 PG (27.0-31.0); MEAN CORPUSCULAR HGB CONC 33.3 g/dL (33.0-36.5); MEAN CORPUSCULAR VOLUME 94.2 FL (78-98); MEAN PLATELET VOLUME 8.8 FL (7.4-10.4); MONOCYTES # (AUTO) 0.9 X10'3 (0-0.9); MONOCYTES % (AUTO) 10.1 % (2-12); NEUTROPHILS # (AUTO) 5.7 X10'3 (1.8-7.7); NEUTROPHILS % (AUTO) 61.5 % (42-75); PLATELET COUNT 227 X10'3 (140-440); RED BLOOD COUNT 4.71 X10'6 (4.20-5.60); RED CELL DISTRIBUTION WIDTH 13.8 % (11.5-14.5); WHITE BLOOD COUNT 9.2 X10'3 (4.5-11.0)
[2019-12-19 22:22] LABS: D-DIMER 0.23 MG/L FEU (0-0.50)
[2019-12-19 23:16] LABS: ALANINE AMINOTRANSFERASE 26 U/L (12-78); ALBUMIN 3.5 G/DL (3.4-5.0); ALKALINE PHOSPHATASE 90 IU/L (46-116); ANION GAP 9 (8-16); ASPARTATE AMINO TRANSFERASE 14 U/L (10-37); BILIRUBIN,TOTAL 0.2 MG/DL (0.1-1.0); BLOOD UREA NITROGEN 21 MG/DL (7-18); BUN/CREATININE RATIO 21.2 (6.6-38.0); CALCIUM 9.1 MG/DL (8.5-10.1); CHLORIDE 108 MMOL/L (99-107); CREATININE 0.99 MG/DL (0.40-0.90); GLUCOSE 136 MG/DL (70-104); POTASSIUM 3.3 MMOL/L (3.5-5.1); SODIUM 140 MMOL/L (135-145); TOTAL CARBON DIOXIDE 23.1 MMOL/L (24-32); TOTAL PROTEIN 7.1 G/DL (6.4-8.2); eGFR 60 ML/MIN
[2019-12-19 23:33] VITALS: BP 119/46
== END 2019-12-19 23:54 | disposition home or self-care (01) ==
LOC: ER 21:33
DX: R07.89 Other chest pain (principal); J43.9 Emphysema, unspecified; J45.909 Unspecified asthma, uncomplicated; G89.29 Other chronic pain; F41.9 Anxiety disorder, unspecified; F41.0 Panic disorder [episodic paroxysmal anxiety]; Z98.51 Tubal ligation status; Z90.710 Acquired absence of both cervix and uterus; Z98.890 Other specified postprocedural states; Z72.89 Other problems related to lifestyle; Z86.14 Personal history of Methicillin resistant Staphylococcus aureus infection; Z88.8 Allergy status to other drugs, medicaments and biological substances; Z79.2 Long term (current) use of antibiotics; Z88.5 Allergy status to narcotic agent; Z88.0 Allergy status to penicillin; Z88.2 Allergy status to sulfonamides; Z91.041 Radiographic dye allergy status; Z79.899 Other long term (current) drug therapy
CPT/HCPCS: 36415; 71045; 80053; 84484; 85025; 85379; 93005; 99285

== ENCOUNTER 2020-03-07 11:45 | Emergency (ER) | payer MEDICAID ==
[~2020-03-07] VITALS: Ht 167.6 cm; Wt 97.3 kg
[~2020-03-07 11:45] MED LIST changes: +KEN0.1O TP
[2020-03-07] MEDS ORDERED: famotidine 20mg tablet PO ONE (12:15)
[2020-03-07] MEDS ORDERED: diphenhydrAMINE 50 mg/ml inj IM ONE (12:15)
[2020-03-07 13:32] VITALS: BP 125/77
== END 2020-03-07 13:47 | disposition home or self-care (01) ==
LOC: ER 11:46
DX: T78.40XA Allergy, unspecified, initial encounter (principal); J45.909 Unspecified asthma, uncomplicated; J43.9 Emphysema, unspecified; G89.29 Other chronic pain; F41.9 Anxiety disorder, unspecified; Z87.01 Personal history of pneumonia (recurrent); Z87.440 Personal history of urinary (tract) infections; Z86.14 Personal history of Methicillin resistant Staphylococcus aureus infection; Z90.710 Acquired absence of both cervix and uterus; Z98.51 Tubal ligation status; Z98.890 Other specified postprocedural states; Z72.89 Other problems related to lifestyle; Z88.1 Allergy status to other antibiotic agents; Z88.0 Allergy status to penicillin; Z88.2 Allergy status to sulfonamides; Z88.5 Allergy status to narcotic agent; Z91.030 Bee allergy status; Z91.040 Latex allergy status; Z79.2 Long term (current) use of antibiotics; Z79.899 Other long term (current) drug therapy; X58.XXXA Exposure to other specified factors, initial encounter
CPT/HCPCS: 96372; 99284; J1200

== ENCOUNTER 2020-03-17 11:31 | Emergency (ER) | payer MEDICAID ==
[~2020-03-17] VITALS: Ht 167.6 cm; Wt 96.8 kg
[2020-03-17 11:38] VITALS: BP 122/70
[2020-03-17] MEDS ORDERED: HYDROcodone/acetaminophen 10/325mg tab PO ONE (11:45)
[2020-03-17] MEDS ORDERED: ondansetron 4mg rapidly disintigrating tab PO ONE (11:45)
== END 2020-03-17 12:47 | disposition home or self-care (01) ==
LOC: ER 11:31
DX: S63.592A Other specified sprain of left wrist, initial encounter (principal); J44.9 Chronic obstructive pulmonary disease, unspecified; G89.29 Other chronic pain; F41.9 Anxiety disorder, unspecified; Z86.14 Personal history of Methicillin resistant Staphylococcus aureus infection; Z90.710 Acquired absence of both cervix and uterus; Z98.51 Tubal ligation status; Z72.89 Other problems related to lifestyle; Z88.1 Allergy status to other antibiotic agents; Z88.8 Allergy status to other drugs, medicaments and biological substances; Z88.5 Allergy status to narcotic agent; Z91.040 Latex allergy status; Z88.0 Allergy status to penicillin; Z88.2 Allergy status to sulfonamides; Z79.899 Other long term (current) drug therapy; Z91.030 Bee allergy status; W01.0XXA Fall on same level from slipping, tripping and stumbling without subsequent striking against object, initial encounter; Y93.89 Activity, other specified; Y92.89 Other specified places as the place of occurrence of the external cause; Y99.8 Other external cause status
CPT/HCPCS: 29125; 73110; 99283

== ENCOUNTER 2020-05-30 17:22 | Emergency (ER) | payer MEDICAID ==
[~2020-05-30] VITALS: Ht 167.6 cm; Wt 96.8 kg
[~2020-05-30 17:22] MED LIST changes: -KEN0.1O TP
[2020-05-30 17:27] VITALS: BP 129/76
[2020-05-30] MEDS ORDERED: predniSONE 20 mg tablet PO ONE (17:45)
[2020-05-30] MEDS ORDERED: PRED20TA PO (17:47)
== END 2020-05-30 18:01 | disposition home or self-care (01) ==
LOC: ER 17:22
DX: T63.461A Toxic effect of venom of wasps, accidental (unintentional), initial encounter (principal); L30.9 Dermatitis, unspecified; J43.9 Emphysema, unspecified; G89.29 Other chronic pain; F41.0 Panic disorder [episodic paroxysmal anxiety]; Z90.710 Acquired absence of both cervix and uterus; Z98.51 Tubal ligation status; Z98.890 Other specified postprocedural states; Z86.14 Personal history of Methicillin resistant Staphylococcus aureus infection; Z88.1 Allergy status to other antibiotic agents; Z88.5 Allergy status to narcotic agent; Z88.0 Allergy status to penicillin; Z88.2 Allergy status to sulfonamides; Z91.030 Bee allergy status; Z88.8 Allergy status to other drugs, medicaments and biological substances; Z79.899 Other long term (current) drug therapy; Y92.89 Other specified places as the place of occurrence of the external cause
CPT/HCPCS: 99283; J7512

== ENCOUNTER 2020-07-09 19:17 | Emergency (ER) | payer MEDICAID ==
[~2020-07-09] VITALS: Ht 167.6 cm; Wt 97.3 kg
[2020-07-09 19:32] VITALS: BP 159/53
[2020-07-09] MEDS ORDERED: NYST1000 PO (20:57)
[2020-07-09] MEDS ORDERED: nystatin 500,000 unit/5ML UD oral suspension PO ONE (21:15)
== END 2020-07-09 21:50 | disposition home or self-care (01) ==
LOC: ER 19:17
DX: B37.0 Candidal stomatitis (principal); J43.9 Emphysema, unspecified; F41.9 Anxiety disorder, unspecified; G89.29 Other chronic pain; K46.9 Unspecified abdominal hernia without obstruction or gangrene; Z98.890 Other specified postprocedural states; Z88.1 Allergy status to other antibiotic agents; Z88.8 Allergy status to other drugs, medicaments and biological substances; Z88.0 Allergy status to penicillin; Z88.2 Allergy status to sulfonamides
CPT/HCPCS: 99283

== ENCOUNTER 2020-07-27 18:54 | Emergency (ER) | payer MEDICAID ==
[~2020-07-27] VITALS: Ht 165.1 cm; Wt 100.0 kg
[~2020-07-27 18:54] MED LIST changes: +NYST1000 PO
[2020-07-27 19:03] VITALS: BP 120/81
--- NOTE | 2020-07-27 19:26 | NUR ---
Attempted to swab pt for COVID. Pt grabbed swab out of nose and refused to have her nose swabbed properly for testing. MD aware and ready to DC pt.
== END 2020-07-27 19:38 | disposition home or self-care (01) ==
LOC: ER 18:54
DX: R05 Cough (principal); M79.10 Myalgia, unspecified site; R51.9 Headache, unspecified; R43.9 Unspecified disturbances of smell and taste; J43.9 Emphysema, unspecified; F41.9 Anxiety disorder, unspecified; G89.29 Other chronic pain; Z88.1 Allergy status to other antibiotic agents; Z91.040 Latex allergy status; Z88.0 Allergy status to penicillin; Z88.2 Allergy status to sulfonamides; Z88.8 Allergy status to other drugs, medicaments and biological substances; Z87.448 Personal history of other diseases of urinary system; Z98.51 Tubal ligation status; Z98.890 Other specified postprocedural states
CPT/HCPCS: 93005; 99283

== ENCOUNTER 2020-07-30 07:34 | Emergency (ER) | payer MEDICAID ==
[~2020-07-30] VITALS: Ht 167.6 cm; Wt 97.0 kg
--- NOTE | 2020-07-30 08:44 | NUR ---
Lab and EKG at bedside.
[2020-07-30 09:09] LABS: MEAN CORPUSCULAR HEMOGLOBIN 31.7 PG (27.0-31.0); MEAN CORPUSCULAR HGB CONC 33.9 g/dL (33.0-36.5); MEAN CORPUSCULAR VOLUME 93.4 FL (78-98); MEAN PLATELET VOLUME 8.5 FL (7.4-10.4); MONOCYTES # (AUTO) 0.3 X10'3 (0-0.9); WHITE BLOOD COUNT 4.6 X10'3 (4.5-11.0)
[2020-07-30 09:11] LABS: BASOPHILS % (AUTO) 0.6 % (0-1); EOSINOPHILS % (AUTO) 0.1 % (0-6); HEMATOCRIT 49.3 % (35.0-45.0); HEMOGLOBIN 16.8 g/dl (12.0-16.0); LYMPHOCYTES # (AUTO) 0.7 X10'3 (1.1-4.8); LYMPHOCYTES % (AUTO) 15.4 % (21-51); MONOCYTES % (AUTO) 7.5 % (2-12); NEUTROPHILS # (AUTO) 3.5 X10'3 (1.8-7.7); NEUTROPHILS % (AUTO) 76.4 % (42-75); PLATELET COUNT 165 X10'3 (140-440); RED BLOOD COUNT 5.29 X10'6 (4.20-5.60); RED CELL DISTRIBUTION WIDTH 13.8 % (11.5-14.5)
[2020-07-30 09:21] LABS: ALANINE AMINOTRANSFERASE 42 U/L (12-78); ALBUMIN 3.6 G/DL (3.4-5.0); ALBUMIN/GLOBULIN RATIO 0.8 (1.1-1.5); ALKALINE PHOSPHATASE 111 IU/L (46-116); ANION GAP 10 (8-16); ASPARTATE AMINO TRANSFERASE 39 U/L (10-37); BILIRUBIN,TOTAL 0.4 MG/DL (0.1-1.0); BLOOD UREA NITROGEN 10 MG/DL (7-18); BUN/CREATININE RATIO 9.8 (6.6-38.0); CALCIUM 8.8 MG/DL (8.5-10.1); CHLORIDE 106 MMOL/L (99-107); CREATININE 1.02 MG/DL (0.40-0.90); GLUCOSE 115 MG/DL (70-104); POTASSIUM 4.7 MMOL/L (3.5-5.1); SODIUM 141 MMOL/L (135-145); TOTAL PROTEIN 8.2 G/DL (6.4-8.2); eGFR 58 ML/MIN
[2020-07-30 09:28] LABS: MAGNESIUM 2.1 MG/DL (1.5-2.4)
[2020-07-30] MEDS ORDERED: LEVO500T89 PO (09:54)
--- NOTE | 2020-07-30 09:59 | NUR ---
PT IS REFUSING COVID SWAB
[2020-07-30 10:22] VITALS: BP 132/59
--- NOTE | 2020-07-30 10:24 | NUR ---
PT HAS AGREED TO COVID SWAB.
== END 2020-07-30 10:24 | disposition home or self-care (01) ==
LOC: ER 07:35
DX: U07.1 COVID-19 (principal); R07.89 Other chest pain; R05 Cough; R50.9 Fever, unspecified; R06.02 Shortness of breath; J43.9 Emphysema, unspecified; J45.909 Unspecified asthma, uncomplicated; G89.29 Other chronic pain; F41.9 Anxiety disorder, unspecified; Z87.01 Personal history of pneumonia (recurrent); Z87.440 Personal history of urinary (tract) infections; Z86.14 Personal history of Methicillin resistant Staphylococcus aureus infection; Z90.710 Acquired absence of both cervix and uterus; Z98.51 Tubal ligation status; Z98.890 Other specified postprocedural states; Z72.89 Other problems related to lifestyle; Z88.1 Allergy status to other antibiotic agents; Z88.5 Allergy status to narcotic agent; Z88.2 Allergy status to sulfonamides; Z88.8 Allergy status to other drugs, medicaments and biological substances; Z91.011 Allergy to milk products; Z79.2 Long term (current) use of antibiotics; Z79.899 Other long term (current) drug therapy
CPT/HCPCS: 36415; 71045; 80053; 83735; 83880; 84484; 85025; 87635; 93005; 99285

== ENCOUNTER 2020-08-15 04:18 | Emergency (ER) | payer MEDICAID ==
[~2020-08-15] VITALS: Ht 167.6 cm; Wt 95.0 kg
[~2020-08-15 04:18] MED LIST changes: -NYST1000 PO
[2020-08-15] MEDS ORDERED: ondansetron/PF 4mg/2ml inj IV ONE (04:45)
[2020-08-15] MEDS ORDERED: normal saline 1000ML IV soln IVB ONE (04:45)
[2020-08-15] MEDS ORDERED: morphine 4 MG/ML inj SYRINge IV PRN (04:45)
[2020-08-15] MEDS ORDERED: ketorolac trometh. 30mg/ml inj. IV ONE (04:50)
--- NOTE | 2020-08-15 05:19 | NUR ---
pt not wanting zofran or toradol at this time
[2020-08-15 05:22] LABS: CLARITY,URINE CLEAR (Clear); COLOR,URINE YELLOW (Yellow); GLUCOSE, URINE NEGATIVE (Neg); KETONES,URINE NEGATIVE (Neg); LEUKOCYTE ESTERASE ,URINE NEGATIVE (Neg); NITRITES, URINE NEGATIVE (Neg); OCCULT BLOOD,URINE NEGATIVE (Neg); PROTEIN,URINE NEGATIVE (Neg); UROBILINOGEN,URINE 0.2 E.U/dL (0.2-1.0)
[2020-08-15 05:23] LABS: URINE HCG NEGATIVE (NEG)
[2020-08-15 05:32] LABS: BASOPHILS # (AUTO) 0.1 X10'3 (0-0.2); EOSINOPHILS # (AUTO) 0.2 X10'3 (0-0.9); EOSINOPHILS % (AUTO) 1.9 % (0-6); HEMATOCRIT 46.1 % (35.0-45.0); HEMOGLOBIN 15.5 g/dl (12.0-16.0); LYMPHOCYTES # (AUTO) 2.4 X10'3 (1.1-4.8); LYMPHOCYTES % (AUTO) 24.4 % (21-51); MEAN CORPUSCULAR HEMOGLOBIN 30.7 PG (27.0-31.0); MEAN CORPUSCULAR HGB CONC 33.7 g/dL (33.0-36.5); MEAN CORPUSCULAR VOLUME 91.1 FL (78-98); MEAN PLATELET VOLUME 8.3 FL (7.4-10.4); MONOCYTES % (AUTO) 9.9 % (2-12); NEUTROPHILS # (AUTO) 6.2 X10'3 (1.8-7.7); NEUTROPHILS % (AUTO) 62.8 % (42-75); PLATELET COUNT 324 X10'3 (140-440); RED BLOOD COUNT 5.06 X10'6 (4.20-5.60); RED CELL DISTRIBUTION WIDTH 13.2 % (11.5-14.5); WHITE BLOOD COUNT 9.8 X10'3 (4.5-11.0)
[2020-08-15 05:34] LABS: ALANINE AMINOTRANSFERASE 37 U/L (12-78); ALBUMIN 3.5 G/DL (3.4-5.0); ALBUMIN/GLOBULIN RATIO 0.8 (1.1-1.5); ALKALINE PHOSPHATASE 111 IU/L (46-116); ANION GAP 12 (8-16); ASPARTATE AMINO TRANSFERASE 19 U/L (10-37); BILIRUBIN,TOTAL 0.4 MG/DL (0.1-1.0); BLOOD UREA NITROGEN 15 MG/DL (7-18); BUN/CREATININE RATIO 14.4 (6.6-38.0); CALCIUM 9.1 MG/DL (8.5-10.1); CHLORIDE 105 MMOL/L (99-107); CREATININE 1.04 MG/DL (0.40-0.90); GLUCOSE 125 MG/DL (70-104); LIPASE 184 U/L (73-393); POTASSIUM 4.2 MMOL/L (3.5-5.1); SODIUM 141 MMOL/L (135-145); TOTAL CARBON DIOXIDE 23.7 MMOL/L (24-32); TOTAL PROTEIN 8.1 G/DL (6.4-8.2); eGFR 57 ML/MIN
--- NOTE | 2020-08-15 05:46 | NUR ---
PT REFUSES ORDERED PAIN MEDICATION AND ZOFRAN AT THIS TIME.
[2020-08-15 06:08] LABS: UA COLLECTION TYPE CLN CATCH MIDSTREAM
[2020-08-15 07:00] VITALS: BP 115/67
== END 2020-08-15 06:42 | disposition home or self-care (01) ==
LOC: ER 04:18
DX: R10.13 Epigastric pain (principal); J43.9 Emphysema, unspecified; G89.29 Other chronic pain; F41.9 Anxiety disorder, unspecified; Z79.899 Other long term (current) drug therapy; Z88.1 Allergy status to other antibiotic agents; Z91.040 Latex allergy status; Z88.5 Allergy status to narcotic agent; Z88.2 Allergy status to sulfonamides; Z88.0 Allergy status to penicillin; Z88.8 Allergy status to other drugs, medicaments and biological substances; Z98.51 Tubal ligation status
CPT/HCPCS: 36415; 80053; 81003; 81025; 83690; 85025; 93005; 96360; 96361; 99284; J7030

== ENCOUNTER 2020-08-20 15:19 | Emergency (ER) | payer MEDICAID ==
[~2020-08-20] VITALS: Ht 167.6 cm; Wt 94.5 kg
[2020-08-20 15:25] VITALS: BP 123/66
[2020-08-20] MEDS ORDERED: NYST1000 PO (17:03)
== END 2020-08-20 17:11 | disposition home or self-care (01) ==
LOC: ER 15:20
DX: B37.0 Candidal stomatitis (principal); J43.9 Emphysema, unspecified; G89.29 Other chronic pain; F41.9 Anxiety disorder, unspecified; Z87.01 Personal history of pneumonia (recurrent); Z87.440 Personal history of urinary (tract) infections; Z86.14 Personal history of Methicillin resistant Staphylococcus aureus infection; Z90.710 Acquired absence of both cervix and uterus; Z98.51 Tubal ligation status; Z98.890 Other specified postprocedural states; Z72.89 Other problems related to lifestyle; Z88.1 Allergy status to other antibiotic agents; Z88.5 Allergy status to narcotic agent; Z88.8 Allergy status to other drugs, medicaments and biological substances; Z91.030 Bee allergy status; Z91.040 Latex allergy status; Z79.899 Other long term (current) drug therapy
CPT/HCPCS: 99283

== ENCOUNTER 2021-02-07 18:54 | Emergency (ER) | payer MEDICAID ==
[~2021-02-07] VITALS: Ht 167.6 cm; Wt 93.9 kg
[2021-02-07 19:15] VITALS: BP 125/63
== END 2021-02-07 23:59 | disposition left against medical advice (07) ==
LOC: ER 18:58
DX: K13.79 Other lesions of oral mucosa (principal); Z53.21 Procedure and treatment not carried out due to patient leaving prior to being seen by health care provider

== ENCOUNTER 2021-02-09 14:40 | Emergency (ER) | payer MEDICAID ==
[~2021-02-09] VITALS: Ht 167.6 cm; Wt 93.5 kg
[2021-02-09 15:22] VITALS: BP 139/77
[2021-02-09] MEDS ORDERED: NYST1000 PO (16:00)
== END 2021-02-09 16:06 | disposition home or self-care (01) ==
LOC: ER 14:42
DX: B37.0 Candidal stomatitis (principal); J43.9 Emphysema, unspecified; G89.29 Other chronic pain; F41.9 Anxiety disorder, unspecified; Z87.01 Personal history of pneumonia (recurrent); Z87.440 Personal history of urinary (tract) infections; Z86.14 Personal history of Methicillin resistant Staphylococcus aureus infection; Z90.710 Acquired absence of both cervix and uterus; Z98.51 Tubal ligation status; Z98.890 Other specified postprocedural states; Z88.1 Allergy status to other antibiotic agents; Z88.8 Allergy status to other drugs, medicaments and biological substances; Z88.5 Allergy status to narcotic agent; Z88.2 Allergy status to sulfonamides; Z91.040 Latex allergy status; Z91.030 Bee allergy status; Z79.2 Long term (current) use of antibiotics; Z79.899 Other long term (current) drug therapy
CPT/HCPCS: 99283

== ENCOUNTER 2021-12-12 14:59 | Emergency (ER) | payer MEDICAID ==
[~2021-12-12] VITALS: Ht 167.6 cm; Wt 95.5 kg
[2021-12-12 15:14] VITALS: BP 121/69
--- NOTE | 2021-12-12 18:50 | NUR ---
Pt was waiting in room to have vascular study done. Staff states they visualized pt leaving her room, stating "I've been waiting for an hour and a half. This is [facility] worst hospital." Pt eloped.
== END 2021-12-12 18:55 | disposition left against medical advice (07) ==
LOC: ER 15:00
DX: M25.461 Effusion, right knee (principal); M25.561 Pain in right knee; J44.9 Chronic obstructive pulmonary disease, unspecified; F41.9 Anxiety disorder, unspecified; G89.29 Other chronic pain; Z88.1 Allergy status to other antibiotic agents; Z88.5 Allergy status to narcotic agent; Z88.0 Allergy status to penicillin; Z91.040 Latex allergy status; Z88.2 Allergy status to sulfonamides; Z88.8 Allergy status to other drugs, medicaments and biological substances
CPT/HCPCS: 73564; 99284

== ENCOUNTER 2021-12-16 05:24 | Emergency (ER) | payer MEDICAID ==
[~2021-12-16] VITALS: Ht 167.6 cm; Wt 100.0 kg
[2021-12-16] MEDS ORDERED: LEVO500T90 PO (06:28)
[2021-12-16 06:40] VITALS: BP 151/82
== END 2021-12-16 06:41 | disposition home or self-care (01) ==
LOC: ER 05:25
DX: J20.8 Acute bronchitis due to other specified organisms (principal); J43.9 Emphysema, unspecified; G89.29 Other chronic pain; F41.9 Anxiety disorder, unspecified; Z88.1 Allergy status to other antibiotic agents; Z88.0 Allergy status to penicillin; Z91.040 Latex allergy status; Z88.5 Allergy status to narcotic agent; Z91.030 Bee allergy status
CPT/HCPCS: 71045; 99283

== ENCOUNTER 2022-06-16 15:07 | Emergency (ER) | payer MEDICAID ==
[~2022-06-16] VITALS: Ht 167.6 cm; Wt 99.0 kg
[~2022-06-16 15:07] MED LIST changes: +ALBU6.7H14 INH; -ALBU6.7H9 INH
[2022-06-16 15:50] VITALS: BP 146/68
== END 2022-06-16 20:04 | disposition left against medical advice (07) ==
LOC: ER 15:08
DX: R06.02 Shortness of breath (principal); R05.9 Cough, unspecified; R09.89 Other specified symptoms and signs involving the circulatory and respiratory systems; Z53.21 Procedure and treatment not carried out due to patient leaving prior to being seen by health care provider
CPT/HCPCS: 71045

== ENCOUNTER 2022-10-13 16:13 | Emergency (ER) | payer MEDICAID ==
[~2022-10-13] VITALS: Ht 167.6 cm; Wt 95.0 kg
[2022-10-13 16:40] VITALS: BP 147/72
[2022-10-13 16:52] LABS: ALANINE AMINOTRANSFERASE 23 U/L (12-78); ALBUMIN 3.7 G/DL (3.4-5.0); ALBUMIN/GLOBULIN RATIO 0.9 (1.1-1.5); ALKALINE PHOSPHATASE 123 IU/L (46-116); ANION GAP 9 (8-16); ASPARTATE AMINO TRANSFERASE 17 U/L (10-37); BASOPHILS # (AUTO) 0.1 X10'3 (0-0.2); BASOPHILS % (AUTO) 0.6 % (0-1); BILIRUBIN,TOTAL 0.4 MG/DL (0.1-1.0); BLOOD UREA NITROGEN 10 MG/DL (7-18); BUN/CREATININE RATIO 12.5 (6.6-38.0); CALCIUM 9.3 MG/DL (8.5-10.1); CHLORIDE 104 MMOL/L (99-107); EOSINOPHILS # (AUTO) 0.4 X10'3 (0-0.9); EOSINOPHILS % (AUTO) 4.9 % (0-6); GLUCOSE 92 MG/DL (70-104); HEMATOCRIT 45.5 % (35.0-45.0); HEMOGLOBIN 15.3 g/dl (12.0-16.0); LYMPHOCYTES # (AUTO) 2.2 X10'3 (1.1-4.8); LYMPHOCYTES % (AUTO) 25.1 % (21-51); MEAN CORPUSCULAR HEMOGLOBIN 30.6 PG (27.0-31.0); MEAN CORPUSCULAR HGB CONC 33.7 g/dL (33.0-36.5); MEAN CORPUSCULAR VOLUME 90.6 FL (78-98); MEAN PLATELET VOLUME 8.3 FL (7.4-10.4); MONOCYTES # (AUTO) 0.7 X10'3 (0-0.9); NEUTROPHILS # (AUTO) 5.4 X10'3 (1.8-7.7); NEUTROPHILS % (AUTO) 61.4 % (42-75); PLATELET COUNT 263 X10'3 (140-440); RED BLOOD COUNT 5.01 X10'6 (4.20-5.60); RED CELL DISTRIBUTION WIDTH 13.9 % (11.5-14.5); SODIUM 141 MMOL/L (135-145); TOTAL CARBON DIOXIDE 27.7 MMOL/L (24-32); TOTAL PROTEIN 7.8 G/DL (6.4-8.2); WHITE BLOOD COUNT 8.7 X10'3 (4.5-11.0); eGFR 76 ML/MIN
[2022-10-13] MEDS ORDERED: PRED20TA PO (18:15)
== END 2022-10-13 18:23 | disposition home or self-care (01) ==
LOC: ER 16:13
DX: J20.9 Acute bronchitis, unspecified (principal); J43.9 Emphysema, unspecified; F41.9 Anxiety disorder, unspecified; G89.29 Other chronic pain; Z86.14 Personal history of Methicillin resistant Staphylococcus aureus infection; Z88.1 Allergy status to other antibiotic agents; Z91.030 Bee allergy status; Z91.040 Latex allergy status; Z88.8 Allergy status to other drugs, medicaments and biological substances; Z88.5 Allergy status to narcotic agent
CPT/HCPCS: 36415; 71045; 80053; 83735; 83880; 84484; 85025; 85379; 93005; 93970; 99285

== ENCOUNTER 2023-03-28 15:21 | Emergency (ER) | payer MEDICAID ==
[~2023-03-28] VITALS: Ht 167.6 cm; Wt 90.0 kg
[~2023-03-28 15:21] MED LIST changes: +MONT-48 PO; -MONT10TA21 PO; -ORPH100T2 PO; +ORPH100T4 PO
[2023-03-28 15:29] VITALS: BP 134/87; PULSE 74; RESP 16; TEMP 97.7; O2SAT 97
[2023-03-28] MEDS ORDERED: PRED20TA PO (16:16)
[2023-03-28] MEDS ORDERED: TRIA15CR61 TOP (16:16)
== END 2023-03-28 16:34 | disposition home or self-care (01) ==
LOC: ER 15:22
DX: T63.461A Toxic effect of venom of wasps, accidental (unintentional), initial encounter (principal); L03.116 Cellulitis of left lower limb; J44.9 Chronic obstructive pulmonary disease, unspecified; G89.29 Other chronic pain; F41.9 Anxiety disorder, unspecified; Z90.710 Acquired absence of both cervix and uterus; Z98.51 Tubal ligation status; Z86.14 Personal history of Methicillin resistant Staphylococcus aureus infection; Z98.890 Other specified postprocedural states; Z88.1 Allergy status to other antibiotic agents; Z88.5 Allergy status to narcotic agent; Z88.2 Allergy status to sulfonamides; Z88.0 Allergy status to penicillin; Z91.040 Latex allergy status; Z91.030 Bee allergy status; Z79.899 Other long term (current) drug therapy; Y92.89 Other specified places as the place of occurrence of the external cause
CPT/HCPCS: 99283

== ENCOUNTER 2023-05-16 22:41 | Emergency (ER) | payer MEDICAID ==
[~2023-05-16] VITALS: Ht 167.6 cm; Wt 100.0 kg
[2023-05-16 23:08] VITALS: BP 127/83; PULSE 73; RESP 16; TEMP 97.7; O2SAT 97
== END 2023-05-16 23:55 | disposition left against medical advice (07) ==
LOC: ER 22:43
DX: M79.10 Myalgia, unspecified site (principal); Z53.21 Procedure and treatment not carried out due to patient leaving prior to being seen by health care provider
CPT/HCPCS: 99281

== ENCOUNTER 2023-07-27 15:44 | Emergency (ER) | payer MEDICAID ==
[~2023-07-27] VITALS: Ht 167.6 cm; Wt 100.0 kg
[2023-07-27 15:53] VITALS: BP 134/74; PULSE 71; RESP 16; TEMP 98.9; O2SAT 98
[2023-07-27 16:32] LABS: BILIRUBIN,URINE NEGATIVE (Neg); CLARITY,URINE SLIGHTLY CLOUDY (Clear); COLOR,URINE YELLOW (Yellow); GLUCOSE, URINE NEGATIVE (Neg); KETONES,URINE NEGATIVE (Neg); LEUKOCYTE ESTERASE ,URINE LARGE (Neg); NITRITES, URINE NEGATIVE (Neg); OCCULT BLOOD,URINE SMALL (Neg); PROTEIN,URINE NEGATIVE (Neg); UROBILINOGEN,URINE 0.2 E.U/dL (0.2-1.0)
[2023-07-27 16:34] LABS: URINE HCG NEGATIVE (NEG)
[2023-07-27 16:42] LABS: UA COLLECTION TYPE CLN CATCH MIDSTREAM
[2023-07-27 16:43] LABS: WBC,URINE 30-50 /HPF (0-4)
[2023-07-27 16:45] LABS: BACTERIA,URINE 2+ /HPF (Neg); SQUAMOUS EPITHELIAL CELL,UR FEW /LPF (FEW)
[2023-07-27 16:47] LABS: MUCUS STRANDS FEW /LPF (Neg)
[2023-07-27] MEDS ORDERED: CIPR-113 PO (17:56)
--- NOTE | 2023-07-30 10:56 | NUR ---
called pt per Dr. Lamar, pt needs antibiotic changed to augmentin. Pt reports allergy. Informed pt sheliali grew in her urine. Since pt allergic to many antibiotics, he recommended pt return for IV antibiotics. Pt understands, on her way in. Informed instrument technologistCLEOPATRA carrillo.
== END 2023-07-27 18:19 | disposition home or self-care (01) ==
LOC: ER 15:44
DX: N39.0 Urinary tract infection, site not specified (principal); J44.9 Chronic obstructive pulmonary disease, unspecified; G89.29 Other chronic pain; F41.9 Anxiety disorder, unspecified; Z86.14 Personal history of Methicillin resistant Staphylococcus aureus infection; Z90.710 Acquired absence of both cervix and uterus; Z98.51 Tubal ligation status; Z98.890 Other specified postprocedural states; Z88.1 Allergy status to other antibiotic agents; Z88.5 Allergy status to narcotic agent; Z88.0 Allergy status to penicillin; Z88.2 Allergy status to sulfonamides; Z88.8 Allergy status to other drugs, medicaments and biological substances; Z91.030 Bee allergy status; Z79.899 Other long term (current) drug therapy
CPT/HCPCS: 81001; 81025; 87077; 87088; 87186; 99283

== ENCOUNTER 2023-07-30 11:23 | Emergency (ER) | payer MEDICAID ==
[~2023-07-30] VITALS: Ht 167.6 cm; Wt 99.2 kg
[~2023-07-30 11:23] MED LIST changes: +CIPR-113 PO
[2023-07-30 11:38] VITALS: BP 149/64; PULSE 67; O2SAT 97
[2023-07-30 12:23] VITALS: RESP 18
[2023-07-30] MEDS ORDERED: MEROPENEM 1GM/NS 100ML IVPB 100 ML IV STA (13:30)
[2023-07-30] MEDS ORDERED: FOSFOMYCIN TROMETHAMINE 3 GM PACKET PO ONE ×2 (13:45→16:05)
[2023-07-30] MEDS ORDERED: diphenhydrAMINE 50 mg/ml inj IM PRN (15:10)
[2023-07-30] MEDS ORDERED: normal saline 1000ML IV soln IV ONE (15:20)
[2023-07-30 16:00] LABS: BASOPHILS % (AUTO) 0.6 % (0-1); EOSINOPHILS # (AUTO) 0.2 X10'3 (0-0.9); EOSINOPHILS % (AUTO) 2.3 % (0-6); HEMATOCRIT 46.6 % (35.0-45.0); HEMOGLOBIN 15.4 g/dl (12.0-16.0); MEAN CORPUSCULAR VOLUME 93.9 FL (78-98); MEAN PLATELET VOLUME 8.6 FL (7.4-10.4); MONOCYTES # (AUTO) 0.7 X10'3 (0-0.9); MONOCYTES % (AUTO) 8.8 % (2-12); NEUTROPHILS # (AUTO) 4.9 X10'3 (1.8-7.7); NEUTROPHILS % (AUTO) 62.3 % (42-75); PLATELET COUNT 244 X10'3 (140-440); RED BLOOD COUNT 4.97 X10'6 (4.20-5.60); RED CELL DISTRIBUTION WIDTH 14.1 % (11.5-14.5); WHITE BLOOD COUNT 7.8 X10'3 (4.5-11.0)
[2023-07-30 16:16] LABS: ALANINE AMINOTRANSFERASE 26 U/L (12-78); ALBUMIN 3.6 G/DL (3.4-5.0); ALBUMIN/GLOBULIN RATIO 0.9 (1.1-1.5); ALKALINE PHOSPHATASE 97 IU/L (46-116); ANION GAP 10 (8-16); ASPARTATE AMINO TRANSFERASE 29 U/L (10-37); BILIRUBIN,TOTAL 0.5 MG/DL (0.1-1.0); BLOOD UREA NITROGEN 17 MG/DL (7-18); CALCIUM 8.8 MG/DL (8.5-10.1); CHLORIDE 105 MMOL/L (99-107); CREATININE 1.06 MG/DL (0.40-0.90); GLUCOSE 111 MG/DL (70-104); MAGNESIUM 2.3 MG/DL (1.5-2.4); POTASSIUM 4.8 MMOL/L (3.5-5.1); SODIUM 137 MMOL/L (135-145); TOTAL CARBON DIOXIDE 21.9 MMOL/L (24-32); TOTAL PROTEIN 7.7 G/DL (6.4-8.2); eCRCL 59 ML/MIN; eGFR 55 ML/MIN
[2023-07-30] MEDS ORDERED: magnesium 2GM in 50ml NS 50 ML IV PRN (16:25)
[2023-07-30] MEDS ORDERED: magnesium 4gm in 100ml NS 100 ML IV PRN (16:25)
[2023-07-30] MEDS ORDERED: potassium Cl 20 mEq SR tablet PO PRN ×2 (16:25)
[2023-07-30] MEDS ORDERED: potassium Cl 40MEQ/1/2NS 520ml 520 ML IV PRN (16:25)
[2023-07-30] MEDS ORDERED: magnesium hydroxide 30ml (MOM) UD suspension PO PRN (16:25)
[2023-07-30] MEDS ORDERED: ondansetron/PF 4mg/2ml inj IV PRN (16:25)
[2023-07-30] MEDS ORDERED: morphine 2 MG/ML inj. syringe IV PRN (16:25)
[2023-07-30] MEDS ORDERED: acetaminophen 325mg tablet PO PRN (16:25)
[2023-07-30] MEDS ORDERED: magnesium Cl slow-release 64mg tablet PO PRN (16:25)
[2023-07-30] MEDS ORDERED: mag hydrox/Alum hydrox/simeth 30ml oral suspension PO PRN (16:25)
[2023-07-30 18:11] VITALS: TEMP 98.3
[2023-07-30] MEDS ORDERED: heparin, porcine 5000 units/ml vial SQ SCH (20:00)
[2023-07-30] MEDS ORDERED: docusate sod 100mg capsule PO SCH (20:00)
[2023-07-30] MEDS ORDERED: K and/or MAG REPLACEMENT MC SCH (20:00)
[2023-07-31] MEDS ORDERED: MEROPENEM 1GM/NS 100ML IVPB 100 ML IV SCH
== END 2023-07-30 18:12 | disposition home or self-care (01) ==
LOC: ER 11:23
DX: N39.0 Urinary tract infection, site not specified (principal); F17.200 Nicotine dependence, unspecified, uncomplicated; J43.9 Emphysema, unspecified; F41.9 Anxiety disorder, unspecified; Z86.14 Personal history of Methicillin resistant Staphylococcus aureus infection; Z88.0 Allergy status to penicillin; Z88.1 Allergy status to other antibiotic agents; Z88.5 Allergy status to narcotic agent; Z79.899 Other long term (current) drug therapy
CPT/HCPCS: 36415; 80053; 83605; 83735; 84145; 85025; 96361; 96365; 99284; J2185; J7030

== ENCOUNTER 2023-09-27 12:54 | Emergency (ER) | payer MEDICAID ==
[~2023-09-27] VITALS: Ht 167.6 cm; Wt 97.8 kg
[~2023-09-27 12:54] MED LIST changes: +BUTA-245 PO; -BUTA-281 PO; -CIPR-113 PO
[2023-09-27] MEDS ORDERED: ketorolac trometh inj. 60 MG/2 ML VIAL IM ONE (13:15)
[2023-09-27] MEDS ORDERED: dexamethasone sod phosphate 10mg/ml inj IM STA (14:45)
[2023-09-27 14:57] VITALS: BP 132/78; PULSE 74; RESP 18; TEMP 97.8; O2SAT 98
[2023-09-27] MEDS ORDERED: OXYM30SP26 BOTHNARES (15:04)
[2023-09-27] MEDS ORDERED: FLUT16SP2 BOTHNARES (15:04)
[2023-09-27] MEDS ORDERED: PRED20TA PO (15:04)
== END 2023-09-27 14:58 | disposition home or self-care (01) ==
LOC: ER 12:55
DX: J32.9 Chronic sinusitis, unspecified (principal); J44.9 Chronic obstructive pulmonary disease, unspecified; F31.9 Bipolar disorder, unspecified; G89.29 Other chronic pain; Z90.49 Acquired absence of other specified parts of digestive tract; Z88.1 Allergy status to other antibiotic agents; Z88.0 Allergy status to penicillin; Z79.899 Other long term (current) drug therapy
CPT/HCPCS: 70220; 96372; 99284; J1100; J1885

== ENCOUNTER 2023-09-28 17:01 | Emergency (ER) | payer MEDICAID ==
[~2023-09-28] VITALS: Ht 167.6 cm; Wt 98.3 kg
[~2023-09-28 17:01] MED LIST changes: +FLUT16SP2 BOTHNARES; +OXYM30SP26 BOTHNARES; +PRED20TA PO
[2023-09-28 17:03] VITALS: BP 105/75; PULSE 16; RESP 16; TEMP 98.6; O2SAT 97
[2023-09-28] MEDS ORDERED: ALPRAZolam 0.5mg tablet PO ONE (17:15)
== END 2023-09-28 18:13 | disposition home or self-care (01) ==
LOC: ER 17:02
DX: F41.9 Anxiety disorder, unspecified (principal); J98.01 Acute bronchospasm; J44.9 Chronic obstructive pulmonary disease, unspecified; F31.9 Bipolar disorder, unspecified; Z88.1 Allergy status to other antibiotic agents; Z88.5 Allergy status to narcotic agent; Z79.899 Other long term (current) drug therapy
CPT/HCPCS: 99283

== ENCOUNTER 2023-10-30 03:12 | Emergency (ER) | payer MEDICAID ==
[~2023-10-30] VITALS: Ht 167.6 cm; Wt 99.5 kg
[~2023-10-30 03:12] MED LIST changes: -PRED20TA PO
[2023-10-30 03:16] VITALS: BP 148/76; PULSE 60; RESP 16; TEMP 97.9; O2SAT 97
[2023-10-30] MEDS ORDERED: CIPR-202 PO (04:19)
== END 2023-10-30 04:29 | disposition home or self-care (01) ==
LOC: ER 03:12
DX: L73.1 Pseudofolliculitis barbae (principal); J44.9 Chronic obstructive pulmonary disease, unspecified; F31.9 Bipolar disorder, unspecified; G89.29 Other chronic pain; Z86.14 Personal history of Methicillin resistant Staphylococcus aureus infection
CPT/HCPCS: 99283

== ENCOUNTER 2024-08-29 04:27 | Emergency (ER) | payer MEDICAID ==
[~2024-08-29] VITALS: Ht 167.6 cm; Wt 100.2 kg
[2024-08-29 04:34] VITALS: TEMP 98.5
[2024-08-29 05:18] LABS: BASOPHILS % (AUTO) 0.4 % (0-1); EOSINOPHILS # (AUTO) 0.3 X10'3 (0-0.9); EOSINOPHILS % (AUTO) 2.5 % (0-6); HEMATOCRIT 42.8 % (35.0-45.0); HEMOGLOBIN 14.6 g/dl (12.0-16.0); LYMPHOCYTES # (AUTO) 1.2 X10'3 (1.1-4.8); LYMPHOCYTES % (AUTO) 11.2 % (21-51); MEAN CORPUSCULAR HEMOGLOBIN 31.5 PG (27.0-31.0); MEAN CORPUSCULAR HGB CONC 34.1 g/dL (33.0-36.5); MEAN CORPUSCULAR VOLUME 92.2 FL (78-98); MONOCYTES # (AUTO) 0.9 X10'3 (0-0.9); MONOCYTES % (AUTO) 8.6 % (2-12); NEUTROPHILS # (AUTO) 8.3 X10'3 (1.8-7.7); NEUTROPHILS % (AUTO) 77.3 % (42-75); PLATELET COUNT 214 X10'3 (140-440); RED BLOOD COUNT 4.64 X10'6 (4.20-5.60); RED CELL DISTRIBUTION WIDTH 13.6 % (11.5-14.5); WHITE BLOOD COUNT 10.7 X10'3 (4.5-11.0)
[2024-08-29 05:28] LABS: ALBUMIN 3.2 G/DL (3.4-5.0); ANION GAP 9 (8-16); BLOOD UREA NITROGEN 14 MG/DL (7-18); BUN/CREATININE RATIO 15.6 (10.0-20.0); CALCIUM 8.7 MG/DL (8.5-10.1); CHLORIDE 107 MMOL/L (99-107); GLUCOSE 151 MG/DL (70-104); POTASSIUM 3.9 MMOL/L (3.5-5.1); SODIUM 142 MMOL/L (135-145); eCRCL 68 ML/MIN; eGFR 66 ML/MIN
[2024-08-29] MEDS ORDERED: BENZ-38 PO (05:44)
[2024-08-29 05:45] VITALS: BP 150/82; PULSE 70; RESP 16; O2SAT 98
[2024-08-29] MEDS: benzonatate 100mg capsule PO ONE (05:53)
== END 2024-08-29 05:58 | disposition home or self-care (01) ==
LOC: ER 04:28
DX: R05.9 Cough, unspecified (principal); R11.10 Vomiting, unspecified; J45.909 Unspecified asthma, uncomplicated; J44.9 Chronic obstructive pulmonary disease, unspecified; F41.9 Anxiety disorder, unspecified; G89.29 Other chronic pain; F41.0 Panic disorder [episodic paroxysmal anxiety]; Z88.1 Allergy status to other antibiotic agents; Z88.0 Allergy status to penicillin; Z91.040 Latex allergy status; Z88.2 Allergy status to sulfonamides; Z88.5 Allergy status to narcotic agent; Z91.030 Bee allergy status; Z88.8 Allergy status to other drugs, medicaments and biological substances; Z88.6 Allergy status to analgesic agent; Z98.890 Other specified postprocedural states; Z90.710 Acquired absence of both cervix and uterus; Z79.899 Other long term (current) drug therapy; Z98.51 Tubal ligation status; Z20.822 Contact with and (suspected) exposure to COVID-19
CPT/HCPCS: 36415; 80048; 85025; 87502; 87503; 87811; 99283

== ENCOUNTER → 2024-09-01 | Emergency (ER) | payer MEDICAID ==
[~2024-09-01] VITALS: Ht 167.6 cm; Wt 100.0 kg
[~2024-09-01] MED LIST changes: +BENZ-38 PO; +LEVO-65 PO; +PRED20TA PO
[2024-09-01 02:35] LABS: BASOPHILS % (AUTO) 0.5 % (0-1); EOSINOPHILS # (AUTO) 0.3 X10'3 (0-0.9); EOSINOPHILS % (AUTO) 2.9 % (0-6); HEMATOCRIT 42.2 % (35.0-45.0); HEMOGLOBIN 14.4 g/dl (12.0-16.0); LYMPHOCYTES % (AUTO) 11.3 % (21-51); MEAN CORPUSCULAR HEMOGLOBIN 31.6 PG (27.0-31.0); MEAN CORPUSCULAR VOLUME 92.9 FL (78-98); MEAN PLATELET VOLUME 8.1 FL (7.4-10.4); MONOCYTES # (AUTO) 0.8 X10'3 (0-0.9); NEUTROPHILS # (AUTO) 6.8 X10'3 (1.8-7.7); NEUTROPHILS % (AUTO) 76.3 % (42-75); PLATELET COUNT 269 X10'3 (140-440); RED BLOOD COUNT 4.54 X10'6 (4.20-5.60); RED CELL DISTRIBUTION WIDTH 13.8 % (11.5-14.5); WHITE BLOOD COUNT 8.9 X10'3 (4.5-11.0)
[2024-09-01 02:50] LABS: ALANINE AMINOTRANSFERASE 17 U/L (12-78); ALBUMIN 3.3 G/DL (3.4-5.0); ALBUMIN/GLOBULIN RATIO 0.8 (1.1-1.5); ALKALINE PHOSPHATASE 116 IU/L (46-116); ANION GAP 7 (8-16); ASPARTATE AMINO TRANSFERASE 11 U/L (10-37); BILIRUBIN,TOTAL 0.4 MG/DL (0.1-1.0); BLOOD UREA NITROGEN 10 MG/DL (7-18); BUN/CREATININE RATIO 10.9 (10.0-20.0); CALCIUM 8.7 MG/DL (8.5-10.1); CHLORIDE 107 MMOL/L (99-107); CREATININE 0.92 MG/DL (0.40-0.90); GLUCOSE 174 MG/DL (70-104); POTASSIUM 3.8 MMOL/L (3.5-5.1); SODIUM 141 MMOL/L (135-145); TOTAL CARBON DIOXIDE 27.2 MMOL/L (24-32); TOTAL PROTEIN 7.6 G/DL (6.4-8.2); eCRCL 67 ML/MIN; eGFR 64 ML/MIN
[2024-09-01 02:58] LABS: PRO BRAIN NATRIURETIC PEPTIDE 95 PG/ML (0-125)
[2024-09-01] MEDS: dexamethasone sod phosphate 10mg/ml inj PO STA (04:05)
[2024-09-01] MEDS: ipratropium/albuterol 3ml nebule NEB ONE (04:07)
[2024-09-01 04:13] VITALS: PULSE 92; RESP 20; O2SAT 96
[2024-09-01 04:20] VITALS: PULSE 93; RESP 18; O2SAT 99
[2024-09-01 05:26] VITALS: BP 132/59; PULSE 95; RESP 16; TEMP 98.8; O2SAT 94
[2024-09-01] MEDS: levoFLOXACIN 250mg tablet PO ONE (05:32)
== END | disposition home or self-care (01) ==
LOC: ER 05:49
DX: J40 Bronchitis, not specified as acute or chronic (principal); J44.9 Chronic obstructive pulmonary disease, unspecified; G89.29 Other chronic pain; F41.9 Anxiety disorder, unspecified; F41.0 Panic disorder [episodic paroxysmal anxiety]; F17.210 Nicotine dependence, cigarettes, uncomplicated; Z88.1 Allergy status to other antibiotic agents; Z88.0 Allergy status to penicillin; Z88.2 Allergy status to sulfonamides; Z88.8 Allergy status to other drugs, medicaments and biological substances; Z88.5 Allergy status to narcotic agent; Z91.030 Bee allergy status; Z91.040 Latex allergy status; Z98.890 Other specified postprocedural states; Z90.710 Acquired absence of both cervix and uterus; Z98.51 Tubal ligation status; Z79.1 Long term (current) use of non-steroidal anti-inflammatories (NSAID); Z79.52 Long term (current) use of systemic steroids; Z79.899 Other long term (current) drug therapy
CPT/HCPCS: 36415; 71045; 80053; 83880; 84484; 85025; 93005; 94640; 99285; J1100; 94760

== ENCOUNTER 2025-03-03 15:09 | Outpatient (CLI) | payer MEDICAID ==
[~2025-03-03 15:09] MED LIST changes: -BENZ-38 PO; -LEVO-65 PO; -PRED20TA PO
--- NOTE | 2025-03-03 17:02 | RADIOLOGY REPORT ---
Procedure: CT CT CHEST Reason for study/Clinical History: ASTHMA Comparison Study: None TECHNIQUE: Multidetector CT of the chest was performed from the lung apices to the upper abdomen with out the use of intravenous contract. Axial, coronal and sagittal multiplanar reformats were performed . Radiation Dose Information: CT Dose: CTDI volume is 18.7 mGy. Dose-length product is 604 mGy*cm The dose indicators for CT are the volume Computed Tomography (CT) Dose Index (CTDIvol) and the Dose Length Product (DLP), and are measured in units of mGy and mGy-cm, respectively. These indicators are not patient dose, but values generated from the CT scanner acquisition factors. The report includes radiation exposure data for exposures received during this examination. FINDINGS: Lower neck: Unremarkable. Lungs: No focal consolidation. No suspicious pulmonary nodule. Subsegmental atelectasis or scarring i n the lingula. Heart/Vascular Structures: Normal heart size. No pericardial effusion. Lymph Nodes: No adenopathy Pleura: No pleural effusion or significant pneumothorax. Musculoskeletal: No acute osseous abnormality. Soft tissues: Normal. Upper abdomen: Hepatomegaly. IMPRESSION: No acute intrathoracic abnormality. Radiation optimization: All CT scans at this facility use at least one of these dose optimization debby hniques: automated exposure control mA and/or kV adjustment per patient size (includes targeted exam s where dose is matched to clinical indication) or iterative reconstruction.
== END 2025-03-03 23:59 | disposition home or self-care (01) ==
LOC: RAD 15:09
PROVIDERS: ATTEND Physician Assistant Medical
DX: J45.909 Unspecified asthma, uncomplicated (principal); R16.0 Hepatomegaly, not elsewhere classified
CPT/HCPCS: 71250

== ENCOUNTER 2025-03-26 06:32 | Emergency (ER) | payer MEDICAID ==
[~2025-03-26] VITALS: Ht 167.6 cm; Wt 98.7 kg
[2025-03-26 06:37] VITALS: TEMP 98.5
--- NOTE | 2025-03-26 07:02 | Physician Documentation ---
History of Present Illness ~ Chief Complaint: Cold, cough & congestion Stated Complaint: CHEST PAIN Time Seen by MD: 07:01 Primary Medical Doctor: DR CARRASQUILLO HPI Patient presents to the emergency room for evaluation of cough cold congestion headache and sore throat that began last night. History of asthma. She has had no medicines for her symptoms. No fevers Medication Reconciliation Allergies: Coded Allergies: amoxicillin (Verified Allergy, Severe, ANAPHYLAXIS, 07/30/23) cephalexin (Verified Allergy, Severe, 07/30/23) clavulanic acid (Verified Allergy, Severe, ANAPHYLAXIS, 07/30/23) doxycycline (Verified Allergy, Severe, 07/30/23) guaifenesin (Verified Allergy, Intermediate, RASH, 07/30/23) codeine (Verified Allergy, Mild, hives, 07/30/23) Acyclovir Analogues (Verified Allergy, Unknown, SWELL, 07/30/23) Latex, Natural Rubber (Verified Allergy, Unknown, 07/30/23) Penicillins (Unverified Allergy, Unknown, 07/30/23) Sulfa (Sulfonamide Antibiotics) (Verified Allergy, Unknown, 07/30/23) acyclovir (Verified Allergy, Unknown, 07/30/23) azithromycin (Verified Allergy, Unknown, 07/30/23) benzonatate (Unverified Allergy, Unknown, itchy throat, 03/26/25) clindamycin (Verified Allergy, Unknown, 09/13/23) erythromycin base (Unverified Allergy, Unknown, 07/30/23) promethazine (Verified Allergy, Unknown, 10/30/23) sulfamethoxazole (Verified Allergy, Unknown, 07/30/23) triamcinolone (Verified Allergy, Unknown, 07/30/23) trimethoprim (Verified Allergy, Unknown, 07/30/23) venom-honey bee (Unverified Allergy, Unknown, 07/30/23) Uncoded Allergies: EGGS (Allergy, Unknown, 06/06/14) IV CONTRAST (Allergy, Unknown, 08/11/14) PCN (Allergy, Unknown, 03/07/20) SULFATES (Allergy, Unknown, 08/15/20) Scheduled Albuterol Sulfate (Proventil Hfa), 2 PUFFS INH Q6H Albuterol Sulfate (Proventil Hfa), 2 PUFFS INH Q6H Albuterol Sulfate (Ventolin Hfa), 2 PUFFS INH Q4HPRN Albuterol Sulfate Nebs* (Proventil Nebs*), 2.5 MG IH BID, (Reported) Budesonide/Formoterol Fumarate (Symbicort 160-4.5 Mcg Inhaler), 2 PUFFS INH Q12H Dapsone (Dapsone), 1 TAB PO DAILY Diphenhydramine Hcl (Benadryl), 1 CAP PO HS Doxycycline Hyclate (Doxycycline Hyclate), 1 CAP.EC PO BID Famotidine (Pepcid), 1 TAB PO Q12H Fluticasone Propionate (Flonase), 2 SPRAYS BOTHNARES DAILY Guaifenesin (Mucinex), 1 TAB PO Q12H Hydrocodone/Acetaminophen ([place] 5-325 Tablet), 1 TABLET PO TID Ibuprofen (Ibuprofen), 1 TAB PO Q8H Montelukast Sodium (Singulair), 10 MG PO HS, (Reported) Omeprazole* (Prilosec*), 20 MG PO HS, (Reported) Ondansetron (Zofran Odt), 1 TABLET PO Q8H Orphenadrine Citrate (Norflex), 1 TAB PO Q12H PRN Oxymetazoline HCl (Afrin), 2 SPRAYS BOTHNARES Q12H Prednisone (Prednisone), 1 TAB PO DAILY Scheduled PRN Butalb/Acetaminophen/Caffeine (Fioricet Tab), 1 EACH PO Q6H PRN for pain Epinephrine (Epipen 2-Valente), 0.3 MG INJ PRN PRN for allergies Ipratropium/Albuterol Sulfate (Duoneb 2.5-0.5 Mg/3 Ml Soln), 3 ML IH Q4HPRN PRN for cough Past Medical History Past Medical History: Sinusitis, Asthma, Bronchitis, COPD, Emphysema, Pneumonia, Hernia, UTI, Chronic Pain, MRSA Abscess, Anxiety, Panic Disorder Past Surgical History: hysterectomy, tubal ligation, other Other Past Surgical History: hernia repair x 3 Alcohol Use: Rarely Drug Use: none Lives with: S/O, Family Lives In: Home Occupation: employed Review of Systems ROS All review of systems negative except as per HPI Physical Exam Vital Signs: Temperature: 98.5, Source: Oral, Heart Rate: 72, Respiratory Rate: 20, BP: 128/80, Pulse Oximetry: 98, Weight: 98.700 Oxygen Flow Rate: 0 Physical Exam General: Patient is awake, alert, oriented x4 in no acute distress Head: Normocephalic and atraumatic. Eyes: Conjunctival normal. EOMI. PERRL. ENT: Mucous membranes moist. Noted pharyngeal erythema without exudates Neck: Supple, trachea is midline. Chest: Clear to auscultation bilaterally without rales, rhonchi, or wheezes. There is no accessory muscle use or retractions. Cardiac: RRR without murmurs, gallops, or rubs. Abd: Soft, nondistended, nontender, with normoactive bowel sounds. No guarding, rebound, or rigidity. Progress Results/Orders Results/Orders Orders - RAKESH GILLIAM MD Cult Throat + R/O Beta Strep (03/26/25 08:22) Completed Orders - RAKESH GILLIAM MD Strep A Rapid (03/26/25 07:12) Benzonatate Capsule (Tessalon Perles Cap (03/26/25 07:15) Ondansetron Disint. Tablet (Zofran Odt T (03/26/25 07:15) Ibuprofen Tablet (Motrin Tablet) (03/26/25 07:15) Acetaminophen 325mg Tablet (Tylenol Tabl (03/26/25 07:15) Prednisone Tablet (Prednisone Tablet) (03/26/25 07:15) Medications Received in ER Medications (Trade) Dose Ordered Sig/Dilcia Route PRN Reason Start Time Stop Time Status Last Admin Dose Admin (Motrin tablet) 800 mg ONCE ONCE PO 03/26/25 07:15 03/26/25 07:16 DC 03/26/25 07:42 800 MG (Tylenol tablet) 650 mg ONCE ONCE PO 03/26/25 07:15 03/26/25 07:16 DC 03/26/25 07:43 650 MG (predniSONE tablet) 20 mg ONCE ONCE PO 03/26/25 07:15 03/26/25 07:16 DC 03/26/25 07:42 20 MG Vital Signs 03/26/25 03/26/25 03/26/25 03/26/25 06:37 07:00 07:52 07:52 Temp 98.5 Pulse 72 64 77 Resp 20 17 16 16 B/P (MAP) 128/80 107/57 (74) 107/57 (74) Pulse Ox 98 94 94 O2 Flow Rate 0 0 0 Laboratory Tests Test 03/26/25 07:16 Group A Streptococcus Rapid Negative Medical Decision Making Findings Patient presents to the emergency room with cough cold congestion and sore throat. Differentials include but are not limited to strep throat, pneumonia, viral syndrome, CHF. Patient's vitals are reassuring chest x-ray is clear and strep is negative. Symptoms likely viral in nature and we will treat her as such. I do not feel she requires investigation to CHF given patient's constellation of symptoms. Departure Disposition: HOME / SELF CARE / HOMELESS Impression: Primary Impression: Acute respiratory infection Condition: Stable Discharge Instructions: Upper Respiratory Infection, Adult Referrals: NO PRIMARY CARE PROVIDER (PCP) Signature Scribe Signature: No scribe Attestation: The note accurately reflects work and decisions made by me.Rakesh Gilliam MD 03/26/25 08:57 RAKESH GILLIAM MD Mar 26, 2025 07:02
--- NOTE | 2025-03-26 07:40 | RADIOLOGY REPORT ---
EXAM: XR Chest, 2 Views CLINICAL INDICATION: Pain TECHNIQUE: Frontal and lateral views of the chest. COMPARISON: No relevant prior studies available. FINDINGS: LUNGS AND PLEURAL SPACES: Unremarkable. No consolidation. No pneumothorax. HEART: Unremarkable. No cardiomegaly. MEDIASTINUM: Unremarkable. Normal mediastinal contour. BONES/JOINTS: Unremarkable. No acute fracture. IMPRESSION: No acute cardiopulmonary process.
[2025-03-26] MEDS: ibuprofen tablet 400 MG TABLET PO ONE (07:42)
[2025-03-26] MEDS: ondansetron 4mg rapidly disintigrating tab PO ONE (07:48)
[2025-03-26 07:52] VITALS: O2SAT 94
[2025-03-26 08:22] LABS: STREP A SCREEN NEGATIVE (Neg)
[2025-03-26 09:35] VITALS: BP 116/60; PULSE 66; RESP 16
== END 2025-03-26 09:35 | disposition home or self-care (01) ==
LOC: ER 06:32
DX: J06.9 Acute upper respiratory infection, unspecified (principal); F41.9 Anxiety disorder, unspecified; Z88.1 Allergy status to other antibiotic agents; Z88.5 Allergy status to narcotic agent; Z90.710 Acquired absence of both cervix and uterus; Z91.030 Bee allergy status; Z91.040 Latex allergy status; Z98.890 Other specified postprocedural states; Z88.2 Allergy status to sulfonamides; Z88.0 Allergy status to penicillin; Z88.6 Allergy status to analgesic agent; Z79.899 Other long term (current) drug therapy; Z20.822 Contact with and (suspected) exposure to COVID-19
CPT/HCPCS: 71046; 87081; 87880; 99284; J7512